=== PATIENT | female | born 1930 | race Caucasian/White ===

== ENCOUNTER 2017-01-10 14:56 | Inpatient (IN) | payer OTHER ==
[2017-01-10 15:16] VITALS: BMI 31.6
[2017-01-10 17:00] LABS: BASOPHIL 0.3 % (0-2.0); EOSINOPHIL 0.9 % (0-4.5); MCH 31.8 pg (25.7-33.7); MCHC 32.7 g/dl (32.0-36.0); MEAN CELL VOLUME 97.2 fl (80-96); MEAN PLT VOLUME 7.6 fl (7.5-11.1); PLATELET COUNT 283 K/MM3 (134-434); RDW 14.8 % (11.6-15.6); WHITE BLOOD COUNT 6.4 K/mm3 (4.0-10.0)
[2017-01-10 17:04] LABS: ALBUMIN 3.2 g/dl (3.4-5.0); CALCIUM 8.9 mg/dL (8.5-10.1); COCKROFT - GAULT 59.908; CREATININE 0.9 mg/dL (0.55-1.02)
--- NOTE | 2017-01-10 17:06 | PDOC ---
History of Present Illness - General Chief Complaint: Weakness Stated Complaint: PCP SENT/EVALUATION Time Seen by Provider: 01/10/17 16:06 History Source: Patient - History of Present Illness Timing/Duration: other Associated Symptoms: reports: shortness of breath, weakness. denies: chest pain , nausea/vomiting, syncope Past History - Past Medical History Allergies/Adverse Reactions: Allergies Allergy/AdvReac Type Severity Reaction Status Date / Time cefuroxime axetil Allergy Unknown Verified 12/06/12 13:50 [From Ceftin] codeine [Codeine] Allergy Unknown Verified 12/06/12 13:50 epinephrine Allergy Unknown Verified 12/06/12 13:50 Sulfa (Sulfonamide Allergy Unknown Verified 12/06/12 13:50 Antibiotics) [Sulfa(Sulfonamide Antibiotics)] ADHESIVE TAPE Allergy Unknown Uncoded 10/07/12 16:11 BANDAIDS Allergy Unknown Uncoded 10/07/12 16:11 Red/yellow/green peppers Allergy Uncoded 10/09/12 10:34 Home Medications: Ambulatory Orders Acetaminophen [Tylenol -] 500 mg PO BID 01/10/17 Acidoph/L.bulg/Bif.b/S.thermop [Layla-Bid Caplet] 1 each PO TID 01/10/17 Ammonium Lactate Lotion [Lac-Hydrin 12% Lotion -] 1 applic TP ASDIR 01/10/17 Apixaban [Eliquis] 5 mg PO BID 01/10/17 Cholecalciferol (Vitamin D3) [D3-50] 50,000 unit PO MONTHLY 01/10/17 Cranberry Fruit [Cranberry] 405 mg PO DAILY 01/10/17 Cyclosporine [Restasis] 1 each OP BID 01/10/17 Dronedarone HCl [Multaq] 400 mg PO BID 01/10/17 Fluticasone Propionate [Flovent Diskus] 220 mcg IH BID 01/10/17 Furosemide [Lasix] 40 mg PO DAILY 01/10/17 Gabapentin [Neurontin -] 100 mg PO HS 01/10/17 Hydralazine HCl [Apresoline -] 50 mg PO TID 01/10/17 Inhaler, Assist Devices [Optichamber Melyssa] 1 each MC BID 01/10/17 Lactase 3,000 unit PO BID 01/10/17 Levothyroxine [Synthroid -] 75 mcg PO DAILY 01/10/17 Loratadine [Allergy] 10 mg PO DAILY 01/10/17 Losartan Potassium [Cozaar] 100 mg PO DAILY 01/10/17 Montelukast Na [Singulair -] 10 mg PO HS 01/10/17 Nebivolol HCl [Bystolic] 20 mg PO HS 01/10/17 Potassium Chloride [K-Dur -] 10 meq PO BID 01/10/17 Ranitidine [Zantac -] 300 mg PO BID 01/10/17 Asthma: Yes Cardiac Disorders: (cad) COPD: Yes GI Disorders: Yes (GERD) HTN: Yes Thyroid Disease: Yes - Surgical History Cardiac Surgery: Yes (PPM) - Psycho/Social/Smoking Cessation Hx Anxiety: No Suicidal Ideation: No Smoking Status: No Smoking History: Never smoked Have you smoked in the past 12 months: No Number of Cigarettes Smoked Daily: 0 Information on smoking cessation initiated: No Hx Alcohol Use: No Drug/Substance Use Hx: No Substance Use Type: None Hx Substance Use Treatment: No Review of Systems - Review of Systems Respiratory: Yes: Shortness of Breath. No: Cough Cardiac (ROS): No: Chest Pain, Lightheadedness, Palpitations, Syncope *Physical Exam - Vital Signs Last Vital Signs Temp Pulse Resp BP Pulse Ox 97.9 F 70 18 136/95 98 01/10/17 15:12 01/10/17 15:12 01/10/17 15:12 01/10/17 15:12 01/10/17 16:45 - Physical Exam General Appearance: Yes: Appropriately Dressed. No: Apparent Distress HEENT: positive: Normal Voice Neck: positive: Supple Respiratory/Chest: positive: Lungs Clear, Normal Breath Sounds. negative: Respiratory Distress Cardiovascular: positive: Regular Rate, S1, S2 Gastrointestinal/Abdominal: positive: Soft. 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 Pt c/o profound weakness w/ sob x several days. No CP, diaphoresis, n/v, palpitations or leg pain/swelling See exam Parosxysmal afib, sent in for cardioversion by cards C/o weakness/sob, no CP Stable w/ unremarkable exam in ED -ekg/cxr/labs -d/w cards -admit 01/10/17 17:08 01/10/17 17:10 01/10/17 18:[address] Bernard, Dr Hinds contacted him to say that he saw pt in office several days ago for weakness and pt was found to be back in afib so needs admission for cardioversion. Pt stable in ED w/ paced rhythm on ekg. Dr Mir currently at bedside. Will contact PMD and admit 01/10/17 18:13 01/10/17 18:23 01/10/17 18:41 Case d/w Dr Rivera and pt admitted 01/10/17 18:42 *DC/Admit/Observation/Transfer Diagnosis at time of Disposition: Weakness - Discharge Dispostion Condition at time of disposition: Fair Admit: Yes - Referrals Referrals: Charisma Espinal MD [Primary Care Provider] -
[2017-01-10 17:08] LABS: BILIRUBIN,TOTAL 0.6 mg/dL (0.2-1.0); TROPONIN I 0.03 ng/ml (0.00-0.05)
[2017-01-10] MEDS ORDERED: SODIUM CHLORIDE 500 ML IV STA (17:11)
--- NOTE | 2017-01-10 17:46 | CON.CARD ---
Consult Consult Specialty:: Cardiology Referred by:: Alton Espinal MD. Coral Osman MD Reason for Consultation:: Afib - History of Present Illness Chief Complaint: Dyspnea, fatigue History of Present Illness: 86 yo WM h/o 1 vessel CAD, diastolic dysfunction with h/o failure, persistent afib compliant on Eliquis [id number], sick sinus syndrome post PPM with atrial lead revision for lead migration and malfunction (Vadim Sci), mild aortic valve stenosis MG 17 mmHg, HTN/HCVD, hyperlipidmeia, chronic interstitial lung disease, carotid atherosclerosis, hypothyroidism, referred for progressive dyspnea with minimal activity, fatigue, lower extremity edema without chest pain , palpitations, near or true syncope, orthopnea, paroxysmal nocturnal dyspnea, reports medication and diet compliance. - History Source History Provided By: Patient Limitations to Obtaining History: No Limitations - Past Medical History Cardio/Vascular: Yes: AFIB, Aortic Stenosis, CAD, CHF, HTN, Mitral Insufficiency Pulmonary: Yes: Other (Interstitial lung disease) - Past Surgical History Past Surgical History: Yes: Permanent Pacemaker - Alcohol/Substance Use Hx Alcohol Use: No - Smoking History Smoking history: Never smoked Have you smoked in the past 12 months: No Aproximately how many cigarettes per day: 0 Home Medications - Allergies Allergies/Adverse Reactions: Allergies Allergy/AdvReac Type Severity Reaction Status Date / Time cefuroxime axetil Allergy Unknown Verified 12/06/12 13:50 [From Ceftin] codeine [Codeine] Allergy Unknown Verified 12/06/12 13:50 epinephrine Allergy Unknown Verified 12/06/12 13:50 Sulfa (Sulfonamide Allergy Unknown Verified 12/06/12 13:50 Antibiotics) [Sulfa(Sulfonamide Antibiotics)] ADHESIVE TAPE Allergy Unknown Uncoded 10/07/12 16:11 BANDAIDS Allergy Unknown Uncoded 10/07/12 16:11 Red/yellow/green peppers Allergy Uncoded 10/09/12 10:34 - Home Medications Home Medications: Ambulatory Orders Acetaminophen [Tylenol -] 500 mg PO BID 01/10/17 Acidoph/L.bulg/Bif.b/S.thermop [Layla-Bid Caplet] 1 each PO TID 01/10/17 Ammonium Lactate Lotion [Lac-Hydrin 12% Lotion -] 1 applic TP ASDIR 01/10/17 Apixaban [Eliquis] 5 mg PO BID 01/10/17 Cholecalciferol (Vitamin D3) [D3-50] 50,000 unit PO MONTHLY 01/10/17 Cranberry Fruit [Cranberry] 405 mg PO DAILY 01/10/17 Cyclosporine [Restasis] 1 each OP BID 01/10/17 Dronedarone HCl [Multaq] 400 mg PO BID 01/10/17 Fluticasone Propionate [Flovent Diskus] 220 mcg IH BID 01/10/17 Furosemide [Lasix] 40 mg PO DAILY 01/10/17 Gabapentin [Neurontin -] 100 mg PO HS 01/10/17 Hydralazine HCl [Apresoline -] 50 mg PO TID 01/10/17 Inhaler, Assist Devices [Optichamber Melyssa] 1 each MC BID 01/10/17 Lactase 3,000 unit PO BID 01/10/17 Levothyroxine [Synthroid -] 75 mcg PO DAILY 01/10/17 Loratadine [Allergy] 10 mg PO DAILY 01/10/17 Losartan Potassium [Cozaar] 100 mg PO DAILY 01/10/17 Montelukast Na [Singulair -] 10 mg PO HS 01/10/17 Nebivolol HCl [Bystolic] 20 mg PO HS 01/10/17 Potassium Chloride [K-Dur -] 10 meq PO BID 01/10/17 Ranitidine [Zantac -] 300 mg PO BID 01/10/17 Review of Systems - Review of Systems Constitutional: reports: Other (Fatigue) Cardiovascular: reports: Edema, Shortness of Breath - Risk Factors Known Risk Factors: Yes: Age, Hypertension Vital Signs: Vital Signs Temperature 97.9 F 01/10/17 15:12 Pulse Rate 70 01/10/17 15:12 Respiratory Rate 18 01/10/17 15:12 Blood Pressure 136/95 01/10/17 15:12 O2 Sat by Pulse Oximetry (%) 98 01/10/17 16:45 Constitutional: Yes: No Distress, Calm Neck: Yes: Supple Respiratory: Yes: Regular, Diminished, On Nasal O2 Gastrointestinal: Yes: Normal Bowel Sounds, Soft, Abdomen, Obese Cardiovascular: Yes: Pulse Irregular JVD: No Carotid Bruit: No Heart Sounds: Yes: S1, S2 Murmur: Yes: Systolic Murmur, Grade 1 Edema: Yes Edema: LLE: 1+, RLE: 1+ - Other Data Labs, Other Data: CBC, BMP 01/10/17 16:13 01/10/17 16:13 Troponin, BNP 01/10/17 01/10/17 16:13 16:31 Troponin I 0.03 B-Natriuretic Peptide 2636.70 H 2635.16 H Troponin, BNP 01/10/17 01/10/17 16:13 16:31 Troponin I 0.03 B-Natriuretic Peptide 2636.70 H 2635.16 H Underlying afib v-paced at 70 similar to previous Imaging - Results Chest X-ray: Report Reviewed (NAD) Problem List - Problems (1) Acute on chronic diastolic CHF (congestive heart failure), NYHA class 3 Code(s): I50.33 - ACUTE ON CHRONIC DIASTOLIC (CONGESTIVE) HEART FAILURE (2) Hypertensive cardiomyopathy Code(s): I11.9 - HYPERTENSIVE HEART DISEASE WITHOUT HEART FAILURE I42.9 - CARDIOMYOPATHY, UNSPECIFIED Qualifiers: Heart failure presence: with heart failure Qualified Code(s): I11.0 - Hypertensive heart disease with heart failure (3) Coronary artery disease Code(s): I25.10 - ATHSCL HEART DISEASE OF [place] CORONARY ARTERY W/O ANG PCTRS Qualifiers: Coronary Disease-Associated Artery/Lesion type: [place] artery [place] vs. transplanted heart: [place] heart Associated angina: without angina Qualified Code(s): I25.10 - Atherosclerotic heart disease of [place] coronary artery without angina pectoris (4) Hyperlipidemia Code(s): E78.5 - HYPERLIPIDEMIA, UNSPECIFIED Qualifiers: Hyperlipidemia type: pure hypercholesterolemia Qualified Code(s): E78.00 - Pure hypercholesterolemia, unspecified; E78.0 - Pure hypercholesterolemia (5) Persistent atrial fibrillation Code(s): I48.1 - PERSISTENT ATRIAL FIBRILLATION (6) SSS (sick sinus syndrome) Code(s): I49.5 - SICK SINUS SYNDROME (7) History of pacemaker Code(s): Z95.0 - PRESENCE OF CARDIAC PACEMAKER (8) Hypothyroidism Code(s): E03.9 - HYPOTHYROIDISM, UNSPECIFIED Qualifiers: Hypothyroidism type: unspecified Qualified Code(s): E03.9 - Hypothyroidism, unspecified (9) Anticoagulant long-term use Code(s): Z79.01 - ALF (CURRENT) USE OF ANTICOAGULANTS (10) Hyponatremia Code(s): E87.1 - HYPO-OSMOLALITY AND HYPONATREMIA Assessment/Plan 10/10/2015 Echocardiogram: Low normal LV fxn, cLVH, dense MAC, mild , mild LAE 4.1 cm, mild MR, TR 11/01/2014 Mild inferior ischemia, apical thinning LVEF 73% 1. Acute on chronic diastolic failure 2. Persistent afib on Eliquis [id number] 3. Sick sinus syndrome post PPM (Vadim Sci) with h/o atrial lead revision for migration/malfunction 4. 1 vessel CAD 5. HVCD with labile HTN 6. Hyperlipidemia 7. Hypothyroidism 8. Mild aortic stenosis 9. Carotid atherosclerosis 10. Hyponatremia referable to #1 P:1. IV diuresis with monitor diuretic response, renal function and electrolytes 2. Change Multaq to sotalol 80 bid with monitor QTc x 2 days 3. Since patient has been compliant with Eliquis for last month, will plan for DCCV in AM, SERGIO-guidance not necessary 4. Echocardiogram to assess ventricular and valve fxn 5. Continue losartan 100 qd, hydralazine 50 tid, zocor 20 qd, Eliquis 5 bid, zantac 150 bid 6. Thank you for consultative opportunity
[2017-01-10 17:50] LABS: INR 2.04 (0.82-1.09); PROTHROMBIN TIME (PATIENT) 22.8 SEC (9.98-11.88)
--- NOTE | 2017-01-10 18:40 | PDOC ---
*Physical Exam - Vital Signs Last Vital Signs Temp Pulse Resp BP Pulse Ox 97.9 F 70 18 136/95 98 01/10/17 15:12 01/10/17 15:12 01/10/17 15:12 01/10/17 15:12 01/10/17 16:45 ED Treatment Course - LABORATORY CBC & Chemistry Diagram: 01/10/17 16:13 01/10/17 16:13 - ADDITIONAL ORDERS Additional order review: Laboratory Results 01/10/17 01/10/17 01/10/17 16:31 16:13 16:13 INR 2.04 H D Sodium 132 L Potassium 4.1 Chloride 94 L Carbon Dioxide 25 Anion Gap 13 BUN 16 Creatinine 0.9 Creat Clearance w eGFR 59.23 Random Glucose 102 D Calcium 8.9 Total Bilirubin 0.6 AST 22 ALT 22 Alkaline Phosphatase 89 Creatine Kinase 84 Troponin I 0.03 B-Natriuretic Peptide 2635.16 H 2636.70 H Total Protein 7.0 Albumin 3.2 L 01/10/17 16:13 RBC 4.14 MCV 97.2 H MCHC 32.7 RDW 14.8 D MPV 7.6 Neutrophils % 80.0 Lymphocytes % 6.7 L D Monocytes % 12.1 H D Eosinophils % 0.9 Basophils % 0.3 D - Medications Given in the ED: ED Medications Discontinued Medications Generic Name Dose Route Start Last Admin Trade Name Freq PRN Reason Stop Dose Admin Sodium Chloride 500 mls @ 1,000 mls/hr 01/10/17 17:11 01/10/17 17:25 Normal Saline - IV 01/10/17 17:40 1,000 mls/hr ASDIR STA Administration *DC/Admit/Observation/Transfer Diagnosis at time of Disposition: Weakness - Discharge Dispostion Condition at time of disposition: Fair Admit: Yes - Referrals Referrals: Charisma Espinal MD [Primary Care Provider] - - Patient Instructions - Post Discharge Activity
[2017-01-10] MEDS ORDERED: LEVOTHYROXINE NA 75 MCG TABLET (FP) PO ONE (18:44)
[2017-01-10] MEDS ORDERED: LEVOTHYROXINE NA 25 MCG TABLET (FP) ONE (20:10)
[2017-01-10] MEDS: hydrALAZINE HCL 50 MG TABLET (FP) PO SCH (21:28)
[2017-01-10] MEDS: FUROSEMIDE 40 MG/4 ML INJECTABLE VIAL IVPB SCH (21:28)
[2017-01-10] MEDS: SOTALOL HCL 80 MG TABLET (FP) PO SCH (21:28)
[2017-01-10] MEDS: MONTELUKAST NA 10 MG TABLET PO SCH (21:28)
[2017-01-10] MEDS: ATORVASTATIN CA 20 MG TABLET (FP) PO SCH (21:28)
[2017-01-10] MEDS: APIXABAN 5 MG TABLET PO SCH (21:28)
[2017-01-10] MEDS: RANITIDINE HCL 150 MG TABLET (FP) PO SCH (21:28)
[2017-01-10 22:14] LABS: URINE APPEARANCE CLEAR; URINE BILIRUBIN NEGATIVE (NEGATIVE); URINE BLOOD NEGATIVE (NEGATIVE); URINE COLOR STRAW; URINE GLUCOSE (UA) NEGATIVE (NEGATIVE); URINE KETONE NEGATIVE (NEGATIVE); URINE LEUK ESTERASE NEGATIVE (NEGATIVE); URINE NITRITE NEGATIVE (NEGATIVE); URINE PROTEIN NEGATIVE (NEGATIVE); URINE UROBILINOGEN NEGATIVE E.U./dl (0.2-1.0)
[2017-01-11] MEDS: hydrALAZINE HCL 50 MG TABLET (FP) PO SCH ×3 (05:34→22:53)
[2017-01-11] MEDS: LEVOTHYROXINE NA 75 MCG TABLET (FP) PO SCH (06:43)
[2017-01-11] MEDS: FUROSEMIDE 40 MG/4 ML INJECTABLE VIAL IVPB SCH ×2 (06:58→14:41)
[2017-01-11] MEDS: APIXABAN 5 MG TABLET PO SCH ×2 (09:44→22:53)
[2017-01-11] MEDS: RANITIDINE HCL 150 MG TABLET (FP) PO SCH ×2 (09:44→22:53)
[2017-01-11] MEDS: SOTALOL HCL 80 MG TABLET (FP) PO SCH ×2 (09:44→22:53)
[2017-01-11] MEDS: LOSARTAN POTASSIUM 50 MG TABLET (FP) PO SCH (09:44)
--- NOTE | 2017-01-11 09:58 | HP ---
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 Pt c/o profound weakness w/ sob x several days. No CP, diaphoresis, n/v, palpitations or leg pain/swelling Parosxysmal afib, sent in for cardioversion by cards C/o weakness/sob, no CP Stable w/ unremarkable exam in ED -ekg/cxr/labs -d/w cards -admit As per Dr Bernard, Dr Hinds contacted him to say that he saw pt in office several days ago for weakness and pt was found to be back in afib so needs admission for cardioversion. Pt stable in ED w/ paced rhythm on ekg. Pt examined by me in Telemetry Her guardian is with her today. Pt is AAOx3- ambulates with a walker. Has been feeling more tired and weak . Denies any chest pain , SOB , palpitations and dizziness. She had seen DR Rogers a week ago and was told ot go to the ER at that time as she was in Afib - but pt did not want to go and was sent back to [place] on Amiodarone. She had followed up yesterday with no improvement in symptoms and was still found to be in persistent in Afib , she was symptomatic too- Decision made to admit pt and pt to undergo cardioversion. Has PPM placed in 2012- for Afib , she is on Eliquis . Also noted to have increased leg swelling per guardian- today it is much better as she received Lasix yesterday History Source: Patient, Friend Limitations to Obtaining History: No Limitations - Past Medical History Cardiovascular: Yes: AFIB, Aortic Stenosis, CAD, CHF, HTN, Mitral Insufficiency Pulmonary: Yes: Other (Interstitial lung disease) - Past Surgical History Past Surgical History: Yes: Permanent Pacemaker - Smoking History Smoking history: Never smoked Have you smoked in the past 12 months: No Aproximately how many cigarettes per day: 0 - Alcohol/Substance Use Hx Alcohol Use: No Home Medications - Allergies Allergies/Adverse Reactions: Allergies Allergy/AdvReac Type Severity Reaction Status Date / Time cefuroxime axetil Allergy Unknown Verified 12/06/12 13:50 [From Ceftin] codeine [Codeine] Allergy Unknown Verified 12/06/12 13:50 epinephrine Allergy Unknown Verified 12/06/12 13:50 Sulfa (Sulfonamide Allergy Unknown Verified 12/06/12 13:50 Antibiotics) [Sulfa(Sulfonamide Antibiotics)] ADHESIVE TAPE Allergy Unknown Uncoded 10/07/12 16:11 BANDAIDS Allergy Unknown Uncoded 10/07/12 16:11 Red/yellow/green peppers Allergy Uncoded 10/09/12 10:34 - Home Medications Home Medications: Ambulatory Orders Acetaminophen [Tylenol -] 500 mg PO BID 01/10/17 Acidoph/L.bulg/Bif.b/S.thermop [Layla-Bid Caplet] 1 each PO TID 01/10/17 Ammonium Lactate Lotion [Lac-Hydrin 12% Lotion -] 1 applic TP ASDIR 01/10/17 Apixaban [Eliquis] 5 mg PO BID 01/10/17 Cholecalciferol (Vitamin D3) [D3-50] 50,000 unit PO MONTHLY 01/10/17 Cranberry Fruit [Cranberry] 405 mg PO DAILY 01/10/17 Cyclosporine [Restasis] 1 each OP BID 01/10/17 Dronedarone HCl [Multaq] 400 mg PO BID 01/10/17 Fluticasone Propionate [Flovent Diskus] 220 mcg IH BID 01/10/17 Furosemide [Lasix] 40 mg PO DAILY 01/10/17 Gabapentin [Neurontin -] 100 mg PO HS 01/10/17 Hydralazine HCl [Apresoline -] 50 mg PO TID 01/10/17 Inhaler, Assist Devices [Optichamber Melyssa] 1 each MC BID 01/10/17 Lactase 3,000 unit PO BID 01/10/17 Levothyroxine [Synthroid -] 75 mcg PO DAILY 01/10/17 Loratadine [Allergy] 10 mg PO DAILY 01/10/17 Losartan Potassium [Cozaar] 100 mg PO DAILY 01/10/17 Montelukast Na [Singulair -] 10 mg PO HS 01/10/17 Nebivolol HCl [Bystolic] 20 mg PO HS 01/10/17 Potassium Chloride [K-Dur -] 10 meq PO BID 01/10/17 Ranitidine [Zantac -] 300 mg PO BID 01/10/17 Review of Systems - Review of Systems Constitutional: reports: Weakness. denies: Chills, Fever, Loss of Appetite Cardiovascular: denies: Chest Pain, Palpitations, Shortness of Breath Respiratory: denies: Cough, SOB Physical Examination Vital Signs: Vital Signs Temperature 98.1 F 01/11/17 05:31 Pulse Rate 82 01/11/17 05:31 Respiratory Rate 20 01/11/17 05:31 Blood Pressure 120/72 01/11/17 05:31 O2 Sat by Pulse Oximetry (%) 99 01/10/17 21:00 Constitutional: Yes: Well Nourished, No Distress Cardiovascular: Yes: Pulse Irregular, Murmur, Other (PPM) Respiratory: Yes: Diminished Gastrointestinal: Yes: Normal Bowel Sounds, Soft, Abdomen, Obese. No: Distention, Tenderness Edema: Yes Edema: LLE: 1+, RLE: 1+ Psychiatric: Yes: Alert, Oriented Labs: Laboratory Last Values WBC 6.4 K/mm3 (4.0-10.0) 01/10/17 16:13 RBC 4.14 M/mm3 (3.60-5.2) 01/10/17 16:13 Hgb 13.2 GM/dL (10.7-15.3) 01/10/17 16:13 Hct 40.3 % (32.4-45.2) 01/10/17 16:13 MCV 97.2 fl (80-96) H 01/10/17 16:13 MCHC 32.7 g/dl (32.0-36.0) 01/10/17 16:13 RDW 14.8 % (11.6-15.6) D 01/10/17 16:13 Plt Count 283 K/MM3 (134-434) 01/10/17 16:13 MPV 7.6 fl (7.5-11.1) 01/10/17 16:13 Neutrophils % 80.0 % (42.8-82.8) 01/10/17 16:13 Lymphocytes % 6.7 % (8-40) L D 01/10/17 16:13 Monocytes % 12.1 % (3.8-10.2) H D 01/10/17 16:13 Eosinophils % 0.9 % (0-4.5) 01/10/17 16:13 Basophils % 0.3 % (0-2.0) D 01/10/17 16:13 INR 2.04 (0.82-1.09) H D 01/10/17 16:13 Sodium 132 mmol/L (136-145) L 01/10/17 16:13 Potassium 4.1 mmol/L (3.5-5.1) 01/10/17 16:13 Chloride 94 mmol/L (98-107) L 01/10/17 16:13 Carbon Dioxide 25 mmol/L (21-32) 01/10/17 16:13 Anion Gap 13 (8-16) 01/10/17 16:13 BUN 16 mg/dL (7-18) 01/10/17 16:13 Creatinine 0.9 mg/dL (0.55-1.02) 01/10/17 16:13 Creat Clearance w eGFR 59.23 (>60) 01/10/17 16:13 Random Glucose 102 mg/dL (74-106) D 01/10/17 16:13 Calcium 8.9 mg/dL (8.5-10.1) 01/10/17 16:13 Total Bilirubin 0.6 mg/dL (0.2-1.0) 01/10/17 16:13 AST 22 U/L (15-37) 01/10/17 16:13 ALT 22 U/L (12-78) 01/10/17 16:13 Alkaline Phosphatase 89 U/L (45-117) 01/10/17 16:13 Creatine Kinase 84 IU/L (26-192) 01/10/17 16:13 Troponin I 0.03 ng/ml (0.00-0.05) 01/10/17 16:13 B-Natriuretic Peptide 2635.16 pg/ml (5-450) H 01/10/17 16:31 Total Protein 7.0 g/dl (6.4-8.2) 01/10/17 16:13 Albumin 3.2 g/dl (3.4-5.0) L 01/10/17 16:13 Urine Color Straw 01/10/17 22:00 Urine Appearance Clear 01/10/17 22:00 Urine pH 7.0 (5.0-8.0) 01/10/17 22:00 Ur Specific [place] 1.008 (1.001-1.035) 01/10/17 22:00 Urine Protein Negative (NEGATIVE) 01/10/17 22:00 Urine Glucose (UA) Negative (NEGATIVE) 01/10/17 22:00 Urine Ketones Negative (NEGATIVE) 01/10/17 22:00 Urine Blood Negative (NEGATIVE) 01/10/17 22:00 Urine Nitrite Negative (NEGATIVE) 01/10/17 22:00 Urine Bilirubin Negative (NEGATIVE) 01/10/17 22:00 Urine Urobilinogen Negative E.U./dl (0.2-1.0) 01/10/17 22:00 Ur Leukocyte Esterase Negative (NEGATIVE) 01/10/17 22:00 Imaging - Results Chest X-ray: Image Reviewed (mid congestion) EKG: Image Reviewed (Afib) Problem List - Problems (1) Acute on chronic diastolic CHF (congestive heart failure), NYHA class 3 Code(s): I50.33 - ACUTE ON CHRONIC DIASTOLIC (CONGESTIVE) HEART FAILURE (2) Anticoagulant long-term use Code(s): Z79.01 - LONGTERM (CURRENT) USE OF ANTICOAGULANTS (3) Coronary artery disease Code(s): I25.10 - ATHSCL HEART DISEASE OF [place] CORONARY ARTERY W/O ANG PCTRS Qualifiers: Coronary Disease-Associated Artery/Lesion type: [place] artery [place] vs. transplanted heart: [place] heart Associated angina: without angina Qualified Code(s): I25.10 - Atherosclerotic heart disease of [place] coronary artery without angina pectoris (4) History of pacemaker Code(s): Z95.0 - PRESENCE OF CARDIAC PACEMAKER (5) Hyperlipidemia Code(s): E78.5 - HYPERLIPIDEMIA, UNSPECIFIED Qualifiers: Hyperlipidemia type: pure hypercholesterolemia Qualified Code(s): E78.00 - Pure hypercholesterolemia, unspecified; E78.0 - Pure hypercholesterolemia (6) Hypertensive cardiomyopathy Code(s): I11.9 - HYPERTENSIVE HEART DISEASE WITHOUT HEART FAILURE I42.9 - CARDIOMYOPATHY, UNSPECIFIED Qualifiers: Heart failure presence: with heart failure Qualified Code(s): I11.0 - Hypertensive heart disease with heart failure (7) Persistent atrial fibrillation Code(s): I48.1 - PERSISTENT ATRIAL FIBRILLATION (8) Weakness Code(s): R53.1 - WEAKNESS Assessment/Plan PLAN Weakness and CHF decompensation due to persistent Afib To be cardioverted today Keep NPO Cardiology eval noted On Eliquis Continue Lasix BID Monitor renal function meds noted Amiodarone discontinued Rate control with Sotalol DVT prophylaxis-- Eliquis Time spent with pt and guardian, explaining findings and plan, documentation and speaking to staff-- 35 min
[2017-01-11] MEDS ORDERED: SENNOSIDES 8.6MG TABLET (FP) PO PRN (10:22)
--- NOTE | 2017-01-11 10:56 | PN ---
Progress Note, Physician History of Present Illness: Patient's dyspnea and lower extremity edema has improved with diuresis. - Current Medication List Current Medications: Active Medications Apixaban (Eliquis -) 5 mg PO BID [facility] Last Admin: 01/11/17 09:44 Dose: 5 mg Atorvastatin Calcium (Lipitor -) 20 mg PO HS [facility] Last Admin: 01/10/17 21:28 Dose: 20 mg Furosemide (Lasix Injection -) 40 mg IVPB BIDLASIX [facility] Last Admin: 01/11/17 06:58 Dose: 40 mg Hydralazine HCl (Apresoline -) 50 mg PO TID [facility] Last Admin: 01/11/17 05:34 Dose: Not Given Levothyroxine Sodium (Synthroid -) 75 mcg PO DAILY@0700 [facility] Last Admin: 01/11/17 06:43 Dose: Not Given Losartan Potassium (Cozaar -) 100 mg PO DAILY [facility] Last Admin: 01/11/17 09:44 Dose: 100 mg Montelukast Sodium (Singulair -) 10 mg PO HS [facility] Last Admin: 01/10/17 21:28 Dose: 10 mg Ranitidine HCl (Zantac -) 150 mg PO BID [facility] Last Admin: 01/11/17 09:44 Dose: 150 mg Senna (Senna -) 2 tab PO HS PRN PRN Reason: CONSTIPATION Sotalol HCl (Betapace -) 80 mg PO BID [facility] Last Admin: 01/11/17 09:44 Dose: 80 mg - Objective Vital Signs: Vital Signs Temperature 98.1 F 01/11/17 05:31 Pulse Rate 82 01/11/17 05:31 Respiratory Rate 20 01/11/17 05:31 Blood Pressure 120/72 01/11/17 05:31 O2 Sat by Pulse Oximetry (%) 99 01/10/17 21:00 Constitutional: Yes: No Distress, Calm Neck: Yes: Supple Cardiovascular: Yes: Regular Rate and Rhythm, Murmur (2/6 SM) Respiratory: Yes: Regular, Diminished Gastrointestinal: Yes: Normal Bowel Sounds, Soft Edema: Yes Edema: LLE: 1+, RLE: 1+ Labs: INR, PTT INR 2.04 (0.82-1.09) H D 01/10/17 16:13 - ....Imaging EKG: Report Reviewed (Afib occ v-paced @ 79) Problem List - Problems (1) Acute on chronic diastolic CHF (congestive heart failure), NYHA class 3 Code(s): I50.33 - ACUTE ON CHRONIC DIASTOLIC (CONGESTIVE) HEART FAILURE (2) Hypertensive cardiomyopathy Code(s): I11.9 - HYPERTENSIVE HEART DISEASE WITHOUT HEART FAILURE I42.9 - CARDIOMYOPATHY, UNSPECIFIED Qualifiers: Heart failure presence: with heart failure Qualified Code(s): I11.0 - Hypertensive heart disease with heart failure (3) Coronary artery disease Code(s): I25.10 - ATHSCL HEART DISEASE OF [place] CORONARY ARTERY W/O ANG PCTRS Qualifiers: Coronary Disease-Associated Artery/Lesion type: [place] artery [place] vs. transplanted heart: [place] heart Associated angina: without angina Qualified Code(s): I25.10 - Atherosclerotic heart disease of [place] coronary artery without angina pectoris (4) Hyperlipidemia Code(s): E78.5 - HYPERLIPIDEMIA, UNSPECIFIED Qualifiers: Hyperlipidemia type: pure hypercholesterolemia Qualified Code(s): E78.00 - Pure hypercholesterolemia, unspecified; E78.0 - Pure hypercholesterolemia (5) Persistent atrial fibrillation Code(s): I48.1 - PERSISTENT ATRIAL FIBRILLATION (6) SSS (sick sinus syndrome) Code(s): I49.5 - SICK SINUS SYNDROME (7) History of pacemaker Code(s): Z95.0 - PRESENCE OF CARDIAC PACEMAKER (8) Hypothyroidism Code(s): E03.9 - HYPOTHYROIDISM, UNSPECIFIED Qualifiers: Hypothyroidism type: unspecified Qualified Code(s): E03.9 - Hypothyroidism, unspecified (9) Anticoagulant long-term use Code(s): Z79.01 - FDC (CURRENT) USE OF ANTICOAGULANTS (10) Hyponatremia Code(s): E87.1 - HYPO-OSMOLALITY AND HYPONATREMIA Assessment/Plan 10/10/2015 Echocardiogram: Low normal LV fxn, cLVH, dense MAC, mild , mild LAE 4.1 cm, mild MR, TR 11/01/2014 Mild inferior ischemia, apical thinning LVEF 73% 1. Acute on chronic diastolic failure improving 2. Persistent afib on Eliquis [id number] 3. Sick sinus syndrome post PPM (Vadim Sci) with h/o atrial lead revision for migration/malfunction 4. 1 vessel CAD 5. HVCD with labile HTN 6. Hyperlipidemia 7. Hypothyroidism 8. Mild aortic stenosis 9. Carotid atherosclerosis 10. Hyponatremia referable to #1 P:1. Lasix 40 IV bid with monitor diuretic response, renal function and electrolytes 2. Continue sotalol 80 bid 3. Since patient has been compliant with Eliquis for last month, plan for DCCV in AM, SERGIO-guidance not necessary 4. Echocardiogram to assess ventricular and valve fxn 5. Continue losartan 100 qd, hydralazine 50 tid, Lipitor 20 qd, Eliquis 5 bid, zantac 150 bid
[2017-01-11] MEDS ORDERED: PROPOFOL 20 ML ONE ×3 (12:52)
--- NOTE | 2017-01-11 13:06 | PN ---
Progress Note (short form) - Note Progress Note: Procedure Note: Procedure: Direct Current Cardioversion Pre-procedure diagnosis: Diastolic failure, persistent atrial fibrillation, sick sinus syndrome, s/p PPM Post-procedure diagnosis: Paroxysmal atrial fibrillation post DCCV Procedure: After informed consent obtained, patient received propofol by anesthesia, underwent successful direct current cardioversion with synchronized 120J discharge Post-cardioversion EKG obtained demonstrating Atrial pacing @ 60, RBBB, LAFB, maintain sotalol antiarrhythmic with monitor QTc Complications: None Problem List - Problems (1) Acute on chronic diastolic CHF (congestive heart failure), NYHA class 3 Code(s): I50.33 - ACUTE ON CHRONIC DIASTOLIC (CONGESTIVE) HEART FAILURE (2) Hypertensive cardiomyopathy Code(s): I11.9 - HYPERTENSIVE HEART DISEASE WITHOUT HEART FAILURE I42.9 - CARDIOMYOPATHY, UNSPECIFIED Qualifiers: Heart failure presence: with heart failure Qualified Code(s): I11.0 - Hypertensive heart disease with heart failure (3) Coronary artery disease Code(s): I25.10 - ATHSCL HEART DISEASE OF [place] CORONARY ARTERY W/O ANG PCTRS Qualifiers: Coronary Disease-Associated Artery/Lesion type: [place] artery [place] vs. transplanted heart: [place] heart Associated angina: without angina Qualified Code(s): I25.10 - Atherosclerotic heart disease of [place] coronary artery without angina pectoris (4) Hyperlipidemia Code(s): E78.5 - HYPERLIPIDEMIA, UNSPECIFIED Qualifiers: Hyperlipidemia type: pure hypercholesterolemia Qualified Code(s): E78.00 - Pure hypercholesterolemia, unspecified; E78.0 - Pure hypercholesterolemia (5) Persistent atrial fibrillation Code(s): I48.1 - PERSISTENT ATRIAL FIBRILLATION (6) SSS (sick sinus syndrome) Code(s): I49.5 - SICK SINUS SYNDROME (7) History of pacemaker Code(s): Z95.0 - PRESENCE OF CARDIAC PACEMAKER (8) Hypothyroidism Code(s): E03.9 - HYPOTHYROIDISM, UNSPECIFIED Qualifiers: Hypothyroidism type: unspecified Qualified Code(s): E03.9 - Hypothyroidism, unspecified (9) Anticoagulant long-term use Code(s): Z79.01 - RESIDENTIAL (CURRENT) USE OF ANTICOAGULANTS (10) Hyponatremia Code(s): E87.1 - HYPO-OSMOLALITY AND HYPONATREMIA
--- NOTE | 2017-01-11 13:25 | EKG ---
Test Reason : Blood Pressure : / mmHG Vent. 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 RATE HAS INCREASED BY 16 BPM Confirmed by ANJANA TAI MD ([id number]) on 01/11/2017 1:24:46 PM Referred By: Iliana BLACK Confirmed By:ANJANA TAI MD
--- NOTE | 2017-01-11 16:08 | EKG ---
Test Reason : Blood Pressure : / mmHG Vent. Rate : 060 BPM Atrial Rate : 060 BPM P-R Int : 252 ms QRS Dur : 146 ms QT Int : 518 ms P-R-T Axes : 081 -75 -28 degrees QTc Int : 518 ms Atrial-paced rhythm with prolonged AV conduction RIGHT BUNDLE BRANCH BLOCK LEFT ANTERIOR FASCICULAR BLOCK BIFASCICULAR BLOCK MINIMAL VOLTAGE CRITERIA FOR LVH, MAY BE NORMAL VARIANT ABNORMAL ECG WHEN COMPARED WITH ECG OF 11-JAN-2017 08:54, ELECTRONIC ATRIAL PACEMAKER HAS REPLACED ELECTRONIC VENTRICULAR PACEMAKER Confirmed by ANJANA TAI MD ([id number]) on 01/11/2017 4:07:44 PM Referred By: Sumi BAUMANN Confirmed By:ANJANA TAI MD
[2017-01-11] MEDS: MONTELUKAST NA 10 MG TABLET PO SCH (22:53)
[2017-01-11] MEDS: ATORVASTATIN CA 20 MG TABLET (FP) PO SCH (22:53)
[2017-01-12] MEDS: FUROSEMIDE 40 MG/4 ML INJECTABLE VIAL IVPB SCH (06:56)
[2017-01-12] MEDS: LEVOTHYROXINE NA 75 MCG TABLET (FP) PO SCH (06:56)
[2017-01-12] MEDS: hydrALAZINE HCL 50 MG TABLET (FP) PO SCH (06:56)
[2017-01-12 08:11] LABS: BASOPHIL 0.5 % (0-2.0); EOSINOPHIL 2.3 % (0-4.5); MCH 32.5 pg (25.7-33.7); MCHC 33.6 g/dl (32.0-36.0); MEAN CELL VOLUME 96.8 fl (80-96); MEAN PLT VOLUME 8.5 fl (7.5-11.1); NEUTROPHILS 70.5 % (42.8-82.8); PLATELET COUNT 252 K/MM3 (134-434); RDW 14.5 % (11.6-15.6); WHITE BLOOD COUNT 6.6 K/mm3 (4.0-10.0)
[2017-01-12 08:23] LABS: ALBUMIN 2.9 g/dl (3.4-5.0); CALCIUM 8.6 mg/dL (8.5-10.1); COCKROFT - GAULT 57.1965; CREATININE 0.9 mg/dL (0.55-1.02); MAGNESIUM 1.8 mg/dL (1.8-2.4); TOT PROT 6.2 g/dl (6.4-8.2)
[2017-01-12] MEDS ORDERED: ACETAMINOPHEN 325 MG TABLET (FP) ONE (09:38)
[2017-01-12] MEDS: APIXABAN 5 MG TABLET PO SCH (09:40)
[2017-01-12] MEDS: SOTALOL HCL 80 MG TABLET (FP) PO SCH (09:40)
[2017-01-12] MEDS: RANITIDINE HCL 150 MG TABLET (FP) PO SCH (09:40)
[2017-01-12] MEDS: LOSARTAN POTASSIUM 50 MG TABLET (FP) PO SCH (09:40)
--- NOTE | 2017-01-12 09:54 | PN ---
Progress Note, Physician History of Present Illness: Patient's dyspnea and lower extremity edema has improved with diuresis. - Current Medication List Current Medications: Active Medications Apixaban (Eliquis -) 5 mg PO BID [facility] Last Admin: 01/12/17 09:40 Dose: 5 mg Atorvastatin Calcium (Lipitor -) 20 mg PO HS [facility] Last Admin: 01/11/17 22:53 Dose: 20 mg Furosemide (Lasix Injection -) 40 mg IVPB BIDLASIX [facility] Last Admin: 01/12/17 06:56 Dose: 40 mg Hydralazine HCl (Apresoline -) 50 mg PO TID [facility] Last Admin: 01/12/17 06:56 Dose: 50 mg Levothyroxine Sodium (Synthroid -) 75 mcg PO DAILY@0700 [facility] Last Admin: 01/12/17 06:56 Dose: 75 mcg Losartan Potassium (Cozaar -) 100 mg PO DAILY [facility] Last Admin: 01/12/17 09:40 Dose: 100 mg Montelukast Sodium (Singulair -) 10 mg PO HS [facility] Last Admin: 01/11/17 22:53 Dose: 10 mg Ranitidine HCl (Zantac -) 150 mg PO BID [facility] Last Admin: 01/12/17 09:40 Dose: 150 mg Senna (Senna -) 2 tab PO HS PRN PRN Reason: CONSTIPATION Sotalol HCl (Betapace -) 80 mg PO BID [facility] Last Admin: 01/12/17 09:40 Dose: 80 mg - Objective Vital Signs: Vital Signs Temperature 98.7 F 01/12/17 01:54 Pulse Rate 63 01/12/17 06:00 Respiratory Rate 20 01/12/17 06:00 Blood Pressure 132/52 01/12/17 06:00 O2 Sat by Pulse Oximetry (%) 96 01/11/17 21:00 Constitutional: Yes: No Distress, Calm Neck: Yes: Supple Cardiovascular: Yes: Regular Rate and Rhythm, Murmur (2/6) Respiratory: Yes: Regular, Diminished Gastrointestinal: Yes: Normal Bowel Sounds, Soft, Abdomen, Obese Edema: No Labs: CBC, BMP 01/12/17 05:38 01/12/17 05:38 INR, PTT INR 2.04 (0.82-1.09) H D 01/10/17 16:13 - ....Imaging EKG: Report Reviewed (Tele: PAF->SR EKG: NSR @ 62, LAD, LVH, QTc 485 msec) Problem List - Problems (1) Acute on chronic diastolic CHF (congestive heart failure), NYHA class 3 Code(s): I50.33 - ACUTE ON CHRONIC DIASTOLIC (CONGESTIVE) HEART FAILURE (2) Hypertensive cardiomyopathy Code(s): I11.9 - HYPERTENSIVE HEART DISEASE WITHOUT HEART FAILURE I42.9 - CARDIOMYOPATHY, UNSPECIFIED Qualifiers: Heart failure presence: with heart failure Qualified Code(s): I11.0 - Hypertensive heart disease with heart failure (3) Coronary artery disease Code(s): I25.10 - ATHSCL HEART DISEASE OF [place] CORONARY ARTERY W/O ANG PCTRS Qualifiers: Coronary Disease-Associated Artery/Lesion type: [place] artery [place] vs. transplanted heart: [place] heart Associated angina: without angina Qualified Code(s): I25.10 - Atherosclerotic heart disease of [place] coronary artery without angina pectoris (4) Hyperlipidemia Code(s): E78.5 - HYPERLIPIDEMIA, UNSPECIFIED Qualifiers: Hyperlipidemia type: pure hypercholesterolemia Qualified Code(s): E78.00 - Pure hypercholesterolemia, unspecified; E78.0 - Pure hypercholesterolemia (5) Persistent atrial fibrillation Code(s): I48.1 - PERSISTENT ATRIAL FIBRILLATION (6) SSS (sick sinus syndrome) Code(s): I49.5 - SICK SINUS SYNDROME (7) History of pacemaker Code(s): Z95.0 - PRESENCE OF CARDIAC PACEMAKER (8) Hypothyroidism Code(s): E03.9 - HYPOTHYROIDISM, UNSPECIFIED Qualifiers: Hypothyroidism type: unspecified Qualified Code(s): E03.9 - Hypothyroidism, unspecified (9) Anticoagulant long-term use Code(s): Z79.01 - CARE HOME (CURRENT) USE OF ANTICOAGULANTS (10) Hyponatremia Code(s): E87.1 - HYPO-OSMOLALITY AND HYPONATREMIA Assessment/Plan 10/10/2015 Echocardiogram: Low normal LV fxn, cLVH, dense MAC, mild , mild LAE 4.1 cm, mild MR, TR 11/01/2014 Mild inferior ischemia, apical thinning LVEF 73% 01/10/2017 Echo: Mod decreased LV fxn, mod LAE, mod , pacer 1. Acute on chronic diastolic/systolic failure improving post Multaq 2. Paroxysmal afib on Eliquis [id number] post DCCV 3. Sick sinus syndrome post PPM (Vadim Sci) with h/o atrial lead revision for migration/malfunction 4. 1 vessel CAD 5. HVCD with labile HTN 6. Hyperlipidemia 7. Hypothyroidism 8. Moderate aortic stenosis 9. Carotid atherosclerosis 10. Hyponatremia referable to #1 improving 11. Interstitial lung disease precluding long-term amiodarone use P:1. Change Lasix 40 po qd, add Aldactone 25 qd with monitor diuretic response, renal function and electrolytes, replete K and Mg 2. Continue sotalol 80 bid 3. Continue Eliquis 5 bid 4. Continue losartan 100 qd, hydralazine 50 tid, Lipitor 20 qd, zantac 150 bid 5. PT, d/c planning
[2017-01-12] MEDS ORDERED: ACETAMINOPHEN 325 MG TABLET (FP) PO PRN (10:04)
--- NOTE | 2017-01-12 10:12 | DS ---
Physical Examination Vital Signs: Vital Signs Temperature 98.7 F 01/12/17 01:54 Pulse Rate 63 01/12/17 06:00 Respiratory Rate 20 01/12/17 06:00 Blood Pressure 132/52 01/12/17 06:00 O2 Sat by Pulse Oximetry (%) 96 01/11/17 21:00 Labs: CBC, BMP 01/12/17 05:38 01/12/17 05:38 <Mara Osman - Last Filed: 01/12/17 10:12> Vital Signs: Vital Signs Temperature 98.7 F 01/12/17 01:54 Pulse Rate 63 01/12/17 06:00 Respiratory Rate 20 01/12/17 06:00 Blood Pressure 132/52 01/12/17 06:00 O2 Sat by Pulse Oximetry (%) 96 01/11/17 21:00 Findings/Remarks: Patient seen and examined. Chart reviewed. Comfortable. Chief complaint: Pain in the neck-- chronic. Denies chest pain or shortness of breath. Constitutional: Yes: No Distress, Calm Eyes: Yes: Conjunctiva Clear Neck: Yes: Supple Cardiovascular: Yes: Regular Rate and Rhythm, Murmur Respiratory: Yes: CTA Bilaterally Gastrointestinal: Yes: Soft Edema: Yes (Trace) Neurological: Yes: Alert Labs: CBC, BMP 01/12/17 05:38 01/12/17 05:38 <Waleska Myles - Last Filed: 01/12/17 10:18> Discharge Summary Reason For Visit: WEAKNESS Current Active Problems Acute on chronic diastolic CHF (congestive heart failure), NYHA class 3 (Acute) Anticoagulant long-term use (Acute) Coronary artery disease (Acute) History of pacemaker (Acute) Hyperlipidemia (Acute) Hypertensive cardiomyopathy (Acute) Hyponatremia (Acute) Hypothyroidism (Acute) Persistent atrial fibrillation (Acute) SSS (sick sinus syndrome) (Acute) Weakness (Acute) - Home Medications Comprehensive Discharge Medication List: Ambulatory Orders Acetaminophen [Tylenol .Extra-Strength -] 500 mg PO BID 01/10/17 Acidoph/L.bulg/Bif.b/S.thermop [Layla-Bid Caplet] 1 each PO TID 01/10/17 Ammonium Lactate Lotion [Lac-Hydrin 12] 1 applic TP ASDIR 01/10/17 Apixaban [Eliquis] 5 mg PO BID 01/10/17 Cholecalciferol (Vitamin D3) [D3-50] 50,000 unit PO MONTHLY 01/10/17 Cranberry Fruit [Cranberry] 405 mg PO DAILY 01/10/17 Cyclosporine [Restasis] 1 each OP BID 01/10/17 Fluticasone Propionate [Flovent Diskus] 220 mcg IH BID 01/10/17 Furosemide [Lasix] 40 mg PO DAILY 01/10/17 Gabapentin [Neurontin -] 100 mg PO HS 01/10/17 Hydralazine HCl [Apresoline -] 50 mg PO TID 01/10/17 Inhaler, Assist Devices [Optichamber Melyssa] 1 each MC BID 01/10/17 Lactase 3,000 unit PO BID 01/10/17 Levothyroxine [Synthroid -] 75 mcg PO DAILY 01/10/17 Loratadine [Allergy] 10 mg PO DAILY 01/10/17 Losartan Potassium [Cozaar] 100 mg PO DAILY 01/10/17 Montelukast Na [Singulair -] 10 mg PO HS 01/10/17 Nebivolol HCl [Bystolic] 20 mg PO HS 01/10/17 Ranitidine [Zantac -] 300 mg PO BID 01/10/17 Atorvastatin Ca [Lipitor] 20 mg PO HS tablet 01/12/17 Sotalol HCl [Betapace -] 80 mg PO BID tablet 01/12/17 Spironolactone [Aldactone -] 25 mg PO DAILY #30 tablet 01/12/17 <Mara Osman - Last Filed: 01/12/17 10:12> Current Active Problems Acute on chronic diastolic CHF (congestive heart failure), NYHA class 3 (Acute) Anticoagulant long-term use (Acute) Coronary artery disease (Acute) History of pacemaker (Acute) Hyperlipidemia (Acute) Hypertensive cardiomyopathy (Acute) Hyponatremia (Acute) Hypothyroidism (Acute) Persistent atrial fibrillation (Acute) SSS (sick sinus syndrome) (Acute) Weakness (Acute) Hospital Course: The patient is an 86-year-old woman with a significant past medical history of hypertension, hypercholesterolemia, atrial fibrillation on Eliquis, s/p pacemaker for SSS, , sent to ED by her rails developer, Dr Hinds to be admitted for cardioversion for her atrial fibrillation. Patient underwent DC Cardioversion. Patient is now stable back to Retirement. Remains in sinus rhythm. Case discusses with Computer Science Instructor, Dr. Matheus Mir today. Medications reviewed. Patient is on beta pace. Will discharge back to shelter today. Will do EKG before transfer. Medications reconciled. Will discuss with shelter physician as well. Times spent discharge planning/ examining/documenting/ as well as coordinating care; 35 minutes. Documentation prepared by Waleska Myles, acting as a medical billing manager to Mara Osman MD. - Home Medications Comprehensive Discharge Medication List: Ambulatory Orders Acetaminophen [Tylenol .Extra-Strength -] 500 mg PO BID 01/10/17 Acidoph/L.bulg/Bif.b/S.thermop [Layla-Bid Caplet] 1 each PO TID 01/10/17 Ammonium Lactate Lotion [Lac-Hydrin 12] 1 applic TP ASDIR 01/10/17 Apixaban [Eliquis] 5 mg PO BID 01/10/17 Cholecalciferol (Vitamin D3) [D3-50] 50,000 unit PO MONTHLY 01/10/17 Cranberry Fruit [Cranberry] 405 mg PO DAILY 01/10/17 Cyclosporine [Restasis] 1 each OP BID 01/10/17 Fluticasone Propionate [Flovent Diskus] 220 mcg IH BID 01/10/17 Furosemide [Lasix] 40 mg PO DAILY 01/10/17 Gabapentin [Neurontin -] 100 mg PO HS 01/10/17 Hydralazine HCl [Apresoline -] 50 mg PO TID 01/10/17 Inhaler, Assist Devices [Optichamber Melyssa] 1 each MC BID 01/10/17 Lactase 3,000 unit PO BID 01/10/17 Levothyroxine [Synthroid -] 75 mcg PO DAILY 01/10/17 Loratadine [Allergy] 10 mg PO DAILY 01/10/17 Losartan Potassium [Cozaar] 100 mg PO DAILY 01/10/17 Montelukast Na [Singulair -] 10 mg PO HS 01/10/17 Nebivolol HCl [Bystolic] 20 mg PO HS 01/10/17 Ranitidine [Zantac -] 300 mg PO BID 01/10/17 Atorvastatin Ca [Lipitor] 20 mg PO HS tablet 01/12/17 Sotalol HCl [Betapace -] 80 mg PO BID tablet 01/12/17 Spironolactone [Aldactone -] 25 mg PO DAILY #30 tablet 01/12/17 <Waleska Myles - Last Filed: 01/12/17 10:18> Condition: Fair - Instructions Referrals: Charisma Espinal MD [Primary Care Provider] -
[2017-01-12] MEDS ORDERED: SPIRONOLACTONE 25 MG TABLET (FP) PO SCH (10:15)
[2017-01-12] MEDS ORDERED: MAGNESIUM OXIDE 400 MG TABLET (FP) PO ONE (10:30)
[2017-01-12] MEDS ORDERED: POTASSIUM CHLORIDE TABS 20 MEQ TABLET.ER (FP) PO ONE (10:30)
[2017-01-12 12:12] VITALS: BP 122/80; PULSE 72; TEMP 98
[2017-01-13] MEDS ORDERED: FUROSEMIDE 40 MG TABLET (FP) PO SCH (10:00)
--- NOTE | 2017-01-13 11:21 | EKG ---
Test Reason : Blood Pressure : / mmHG Vent. Rate : 065 BPM Atrial Rate : 065 BPM P-R Int : 254 ms QRS Dur : 148 ms QT Int : 530 ms P-R-T Axes : 075 -75 -34 degrees QTc Int : 551 ms Atrial-paced rhythm with prolonged AV conduction RIGHT BUNDLE BRANCH BLOCK LEFT ANTERIOR FASCICULAR BLOCK BIFASCICULAR BLOCK MINIMAL VOLTAGE CRITERIA FOR LVH, MAY BE NORMAL VARIANT ABNORMAL ECG WHEN COMPARED WITH ECG OF 11-JAN-2017 13:34, NONSPECIFIC T WAVE ABNORMALITY NOW EVIDENT IN LATERAL LEADS Confirmed by ANJANA TAI MD ([id number]) on 01/13/2017 11:21:18 AM Referred By: GEOVANY COLIN Confirmed By:ANJANA TAI MD
== END 2017-01-12 13:22 | DRG 308 ==
LOC: JER 14:56 → JERBED 18:40 → J4W 20:48
PROVIDERS: ADMIT Internal Medicine; ATTEND Internal Medicine
PROC: 5A2204Z Restoration of Cardiac Rhythm, Single (ICD-10-PCS; principal; 2017-01-11 12:30)
DX: I48.1 Persistent atrial fibrillation (principal); I50.33 Acute on chronic diastolic (congestive) heart failure; J84.9 Interstitial pulmonary disease, unspecified; E87.1 Hypo-osmolality and hyponatremia; I11.0 Hypertensive heart disease with heart failure; J45.909 Unspecified asthma, uncomplicated; I25.10 Atherosclerotic heart disease of native coronary artery without angina pectoris; J44.9 Chronic obstructive pulmonary disease, unspecified; I34.0 Nonrheumatic mitral (valve) insufficiency; K21.9 Gastro-esophageal reflux disease without esophagitis; I10 Essential (primary) hypertension; E78.5 Hyperlipidemia, unspecified; E03.9 Hypothyroidism, unspecified; I35.0 Nonrheumatic aortic (valve) stenosis; Z95.0 Presence of cardiac pacemaker
CPT/HCPCS: 36415; 71010-TC; 80053; 81003; 82550; 83735; 83880; 84443; 84484; 85025; 85610; 93005; 93010; 93306-TC; 99284-25

== ENCOUNTER 2017-12-07 11:00 | Observation (INO) | payer OTHER ==
--- NOTE | 2017-12-07 11:28 | PDOC ---
History of Present Illness - General Stated Complaint: FALL Time Seen by Provider: 12/07/17 11:05 History Source: Patient Exam Limitations: No Limitations - History of Present Illness Initial Comments: This is an 87 YOF with h/o paroxysmal A-fib (on Eliquis), sick sinus syndrome s/ p pacer placement, CAD, CHF, HTN, HLD, left knee replacement, ambulatory with a walker at her baseline, who presents [facility] s/p GLF at 4 am on Sunday while she was ambulating with her walker in her room at her [facility]. She states that she had no preceding symptoms before the fall, lost her balance using the walker, and fell onto her right hip. She denies having hit her head or lost consciousness, but was unable to pick herself up and was down on the ground for about 4.5 hours before anyone found her. A hip X-ray was initially done which was reportedly negative. However the patient has had continued and even worsening pain all week and had a repeat hip X-ray done in the past day which showed a fracture. The patient denies any chest pain, SOB, leg swelling, QUINTERO, vision changes, or other symptoms. She has been getting Tylenol with the last dose at 0930 today. Past History - Past Medical History Allergies/Adverse Reactions: Allergies Allergy/AdvReac Type Severity Reaction Status Date / Time cefuroxime axetil Allergy Unknown Verified 12/07/17 11:10 [From Ceftin] codeine [Codeine] Allergy Unknown Verified 12/07/17 11:10 epinephrine Allergy Unknown Verified 12/07/17 11:10 Sulfa (Sulfonamide Allergy Unknown Verified 12/07/17 11:10 Antibiotics) [Sulfa(Sulfonamide Antibiotics)] ADHESIVE TAPE Allergy Unknown Uncoded 12/07/17 11:10 BANDAIDS Allergy Unknown Uncoded 12/07/17 11:10 Red/yellow/green peppers Allergy Uncoded 12/07/17 11:10 Home Medications: Ambulatory Orders Acetaminophen [Tylenol .Extra-Strength -] 500 mg PO TID 01/10/17 Acidoph/L.bulg/Bif.b/S.thermop [Layla-Bid Caplet] 1 each PO TID 01/10/17 Ammonium Lactate Lotion [Lac-Hydrin 12] 1 applic TP ASDIR 01/10/17 Apixaban [Eliquis] 5 mg PO BID 01/10/17 Cholecalciferol (Vitamin D3) [D3-50] 50,000 unit PO MONTHLY 01/10/17 Cranberry Fruit [Cranberry] 405 mg PO DAILY 01/10/17 Cyclosporine [Restasis] 1 each OP BID 01/10/17 Fluticasone Propionate [Flovent Diskus] 220 mcg IH BID 01/10/17 Furosemide [Lasix] 20 mg PO DAILY 01/10/17 Gabapentin [Neurontin -] 100 mg PO HS 01/10/17 Lactase 3,000 unit PO BID 01/10/17 Levothyroxine [Synthroid -] 75 mcg PO DAILY 01/10/17 Loratadine [Allergy] 10 mg PO DAILY 01/10/17 Losartan Potassium [Cozaar] 100 mg PO DAILY 01/10/17 Nebivolol HCl [Bystolic] 20 mg PO HS 01/10/17 Ranitidine [Zantac -] 300 mg PO BID 01/10/17 Atorvastatin Ca [Lipitor] 20 mg PO HS tablet 01/12/17 Sotalol HCl [Betapace -] 80 mg PO BID tablet 01/12/17 Spironolactone [Aldactone -] 25 mg PO DAILY #30 tablet 01/12/17 Fluticasone Prop 0.05% Nasal [Flonase -] 1 spray NS BID 12/07/17 Guaifenesin [Robitussin -] 100 mg PO Q4H 12/07/17 Meclizine HCl 12.5 mg PO QID 12/07/17 Simethicone 80 mg PO QID 12/07/17 Asthma: Yes Cardiac Disorders: (cad) COPD: Yes CHF: Yes GI Disorders: Yes (GERD) HTN: Yes Thyroid Disease: Yes - Surgical History Cardiac Surgery: Yes (PPM) - Suicide/Smoking/Psychosocial Hx Smoking Status: No Smoking History: Never smoked Have you smoked in the past 12 months: No Number of Cigarettes Smoked Daily: 0 Information on smoking cessation initiated: No Hx Alcohol Use: No Drug/Substance Use Hx: No Substance Use Type: None Hx Substance Use Treatment: No Review of Systems - Review of Systems Able to Perform ROS?: Yes Constitutional: No: Chills, Fever, Unexplained wgt Loss HEENTM: No: Nose Congestion, Throat Pain Respiratory: No: Cough, Shortness of Breath Cardiac (ROS): No: Chest Pain, Palpitations, Syncope ABD/GI: No: Constipated, Diarrhea, Nausea, Vomiting : No: Burning, Dysuria Musculoskeletal: Yes: Other (right hip pain). No: Back Pain, Neck Pain Integumentary: No: Bruising, Rash Neurological: No: Headache, Numbness, Tingling, Weakness, Dizziness Endocrine: No: Unexplained Weight Gain, Unexplained Weight Loss *Physical Exam - Vital Signs Last Vital Signs Temp Pulse Resp BP Pulse Ox 98.3 F 68 18 153/59 100 12/07/17 11:10 12/07/17 11:10 12/07/17 11:10 12/07/17 11:10 12/07/17 11:10 - Physical Exam General Appearance: Yes: Nourished, Other (very pleasant elderly female in no distress at rest but moderate distress with any repositioning of right hip 2/2 pain, answering questions appropriately). No: Apparent Distress HEENT: positive: EOMI, ANIYA, Normal ENT Inspection, Normal Voice, Hearing Grossly Normal, Other (no cephalohematoma, no scalp contusion or abrasion, no raccoon eyes, no hemotympanum, no wilcox sign, no CSF rhonirrhea or otorrhea). negative: Scleral Icterus (R), Scleral Icterus (L), Nasal Congestion Neck: positive: Trachea midline, Supple. negative: Tender, Rigid, Tender midline Respiratory/Chest: positive: Lungs Clear, Normal Breath Sounds. negative: Respiratory Distress, Crackles, Rhonchi, Stridor, Wheezing Cardiovascular: positive: Regular Rhythm, Regular Rate, S1, S2, Murmur (3/6 systolic ejection murmur), Other (pacer in place right anterior chest wall). negative: Edema, JVD Gastrointestinal/Abdominal: positive: Normal Bowel Sounds, Soft. negative: Tender, Organomegaly, Pulsatile Mass, Guarding Musculoskeletal: positive: Normal Inspection. negative: Decreased Range of Motion, Vertebral Tenderness Extremity: positive: Normal Capillary Refill, Tender (right inguinal tenderness to palpation, no right lateral hip tenderness to palpation), Pelvis Stable, Other (right leg is actually about 2 cm longer than the left leg, no rotation). negative: Cyanosis, Pedal Edema, Swelling, Calf Tenderness Integumentary: positive: Normal Color, Dry, Warm. negative: Erythema, Rash, Bruising Neurologic: positive: web applications programmer II-XII NML intact, Fully Oriented, Alert, Normal Mood/ Affect, Normal Response, Motor Strength 5/5, Finger to Nose (normal), Other ( gait not tested d/t nature of complaint). negative: EOM Palsy, Facial Droop, Numbness, Sensory Deficit, Confused, Disoriented ED Treatment Course - LABORATORY CBC & Chemistry Diagram: 12/07/17 11:50 12/07/17 11:50 Medical Decision Making - Medical Decision Making 87 YOF p/w fall 4 days ago and reported right hip fracture. On exam vitals wnl, mild distress 2/2 pain, right inguinal ttp, right leg 2 cm longer than left, otherwise wnl. Left dorsal hand ecchymosis, LLE shortened by about 3 cm from RLE, DP and PT pulses intact, pelvis stable. Ordered is CT head, CT pelvis/right hip, CBCD CMP Mg Coags T&S UA UCx. Also 2 mg Morphine IV. 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 CXR notable for moderate cardiomegaly, increased interstitial markings, mild vascular congestion. HCT shows likely chronic changes and no acute ICH. Patient additionally has hyponatremia to 129. 12/07/17 15:[address] Taylor. This is unlikely to be a surgical case. Dr. Taylor is in house and will come to see the patient in the ED. Microblog placed to Brad (admitting for Dr. Charisma Espinal). 12/07/17 16:14 Spoke with with Brad (hospitalist team admitting for patient's PCP). Patient will be admitted to Obs Med/Surg to Dr. Sanchez. *DC/Admit/Observation/Transfer Diagnosis at time of Disposition: Hyponatremia, Fall from ground level Fracture of right superior pubic ramus Qualifiers: Encounter type: initial encounter Fracture type: closed Qualified Code(s): S32.511A - Fracture of superior rim of right pubis, initial encounter for closed fracture - Discharge Dispostion Condition at time of disposition: Guarded Admit: Yes - Referrals Referrals: Charisma Espinal MD [Primary Care Provider] - - Patient Instructions - Post Discharge Activity
[2017-12-07 12:05] LABS: BASO % 0.5 % (0-2.0); EOS % 2.5 % (0-4.5); HEMATOCRIT 39.9 % (32.4-45.2); HEMOGLOBIN 13.7 GM/dL (10.7-15.3); LYMPH % 6.7 % (8-40); MCHC 34.4 g/dl (32.0-36.0); MEAN PLT VOLUME 7.6 fl (7.5-11.1); MONO % 13.5 % (3.8-10.2); NEUT % 76.8 % (42.8-82.8); PLATELET COUNT 270 K/MM3 (134-434); RBC 4.03 M/mm3 (3.60-5.2); RDW 13.1 % (11.6-15.6); WHITE BLOOD COUNT 7.7 K/mm3 (4.0-10.0)
[2017-12-07 12:21] LABS: INR 1.37 (0.82-1.09); PROTHROMBIN TIME (PATIENT) 15.5 SEC (9.98-11.88)
[2017-12-07 12:24] LABS: ACTIVATED PTT 31.9 SECONDS (26.9-34.4)
[2017-12-07 12:33] LABS: ALBUMIN 2.8 g/dl (3.4-5.0); ALK PHOS 86 U/L (45-117); ANION GAP 11 (8-16); BILIRUBIN,TOTAL 0.5 mg/dL (0.2-1.0); BLOOD UREA NITROGEN 25 mg/dL (7-18); CALCIUM 8.8 mg/dL (8.5-10.1); CHLORIDE 92 mmol/L (98-107); CO2 26 mmol/L (21-32); CREATININE 0.8 mg/dL (0.55-1.02); GLUCOSE,RANDOM 128 mg/dL (74-106); MAGNESIUM 2.3 mg/dL (1.8-2.4); PHOSPHOROUS 2.6 mg/dL (2.5-4.9); POTASSIUM 4.5 mmol/L (3.5-5.1); SGOT/AST 17 U/L (15-37); SGPT/ALT 20 U/L (12-78); SODIUM 129 mmol/L (136-145); TOT PROT 6.8 g/dl (6.4-8.2)
--- NOTE | 2017-12-07 12:47 | PDOC ---
Attending Attestation - Resident Resident Name: Usha Farley - ED Attending Attestation I have performed the following: I have examined & evaluated the patient, The case was reviewed & discussed with the resident, I agree w/resident's findings & plan, Exceptions are as noted - HPI HPI: 12/07/17 12:45 "The patient is a 87 year old female, with a significant past medical history of paroxysmal atrial fibrillation (on eliquis), sick sinus syndrome s/p pacer placement, coronary artery disease, congestive heart failure, hypertension, hyperlipidemia, who presents to the emergency department via EMS with, right hip pain s/p fall on Sunday. The patient states she was ambulating with her walker when she lost her balance using the walker and fell onto her right side. She denies any head injury or loss of consciousness and states she recalls all events leading up to and after the fall. The patient denies any chest pain, palpitations, shortness of breath, diaphoresis or nausea prior to falling. The patient states an XR was performed at her living facility which was initially negative. However, after having progressively worsening right hip pain throughout the week another XR was performed which confirmed a right hip fracture. That patient reports receiving Tylenol for the pain with minimal relief. She denies neck or back pain. She denies any bowel or bladder incontinence. She denies recent fevers, chills, headache or dizziness. She denies recent nausea, vomit, diarrhea or constipation. She denies recent chest pain or shortness of breath. Allergies: Multiple allergies. See nursing notes. Past surgical history: left knee replacement PCP: Dr Espinal " - Physicial Exam PE: 12/07/17 12:53 "GENERAL: Awake, alert, and fully oriented, in no acute distress HEAD: No signs of trauma EYES: PERRLA, EOMI, sclera anicteric, conjunctiva clear ENT: Auricles normal inspection, hearing grossly normal, nares patent, oropharynx clear without exudates. Moist mucosa NECK: Nontender, no stepoffs, Normal ROM, supple, no lymphadenopathy, JVD, or masses LUNGS: Breath sounds equal, clear to auscultation bilaterally. No wheezes, and no crackles HEART: Regular rate and rhythm, normal S1 and S2, no murmurs, rubs or gallops ABDOMEN: Soft, nontender, normoactive bowel sounds. No guarding, no rebound. No masses EXTREMITIES: +R hip tenderness, distal pulses and sensation intact, ROM limited 2/2 pain NEUROLOGICAL: Cranial nerves II through XII intact. 5/5 strength and sensation in all extremities, Normal speech, normal gait, normal cerebellar function SKIN: Warm, Dry, normal turgor, no rashes or lesions noted. " - Medical Decision Making 12/07/17 12:54 87 F with R hip fx. Exam with R hip tenderness. No other signs of trauma. However, given age and AC, will obtain CT head. - CT head, pelvis - Labs CT pelvis with pubic ramus fx CT head negative Pt admitted to hospitalist. Dr. Taylor following.
--- NOTE | 2017-12-07 15:17 | CONSULT ---
Consult - text type - Consultation Consultation Note: FULL CONSULT DICTATED IMP: RIGHT INF. PUBIC RAMUS FX PLAN: ANALGESICS, PT-WBAT, DC PLANNING. NO SURGICAL INTERVENTION NECESSARY
--- NOTE | 2017-12-07 15:42 | HP ---
CHIEF COMPLAINT: Fall, R hip fx on XR PCP: Charisma Espinal HISTORY OF PRESENT ILLNESS: 87 yo woman w/ pmh of CAD, paroxysmal afib (on eliquis), sick sinus syndrome (s/ p PPM), COPD, Asthma, HLD, Osteoporosis, who presents s/p mechanical fall saturday 12/02, now with persistent R groin pain, found to have R suprapubic ramus fx on imaging at [facility]. At baseline, pt ambulates with walker and lives at [facility]. She states she was walking to the bathroom around 4AM and upon returning, states her walker gave out and she fell on her R side. She denies any lightheadness, dizziness, vision changes, CP, palpitations, cough or leg weakness at the time. Denies headstrike and any other trauma. She denies any gross deformities, numbness or weakness and rates the pain as 8/10. Pt remained on ground for 4 hours until breakfast was delivered. Pt received XR of hip at [facility] , which was initially read as no fx. Pt remained bedbound for majority of week, with minimal resolution in pain with analgesics. Pt received repeat XR of hip yesterday, which was notable for R inferior pubic ramus deformity suspicious for fracture. Pt with no prior hx of fractures, except for clavicle fx at age 11. Has not received DEXA scan. Prior dx of osteoporosis, however unsure of timeline. Pt takes Vitamin D and Calcium supplements, denies estrogen supplements. In addition to pelvic pain, pt endorses productive cough and increased SOB at night, requiring home oxygen, which she normally does not use. Pt denies f/c/n/v /d, CP, dizziness, vision changes, ab pain, back pain, dysuria, peripheral numbness or tingling on exam. She does endorse poor PO intake and hydration. ER course was notable for: (1)Na 129 (2)Pelvic CT with R comminuted pubic symphysis fx (3)CXR with mild congestion Recent Travel: No PAST MEDICAL HISTORY: paroxysmal afib sick sinus syndrome PPM CAD CHF HTN HLD GERD COPD/Asthma Hypothyroidism PAST SURGICAL HISTORY: Left knee replacement Hysterectomy BL mastectomy Tonsillectomy Social History: Lives at assisted living center Smoking: Never Alcohol: No Drugs: No Family History: Mother and father with unspecified cardiac hz, grandparents on both sides with unknown cardiac hx Allergies cefuroxime axetil [From Ceftin] Allergy (Unknown, Verified 12/07/17 11:10) codeine [Codeine] Allergy (Unknown, Verified 12/07/17 11:10) epinephrine Allergy (Unknown, Verified 12/07/17 11:10) Sulfa (Sulfonamide Antibiotics) [Sulfa(Sulfonamide Antibiotics)] Allergy ( Unknown, Verified 12/07/17 11:10) ADHESIVE TAPE Allergy (Unknown, Uncoded 12/07/17 11:10) BANDAIDS Allergy (Unknown, Uncoded 12/07/17 11:10) Red/yellow/green peppers Allergy (Uncoded 12/07/17 11:10) HOME MEDICATIONS: Home Medications Medication Instructions Recorded Acetaminophen [Tylenol 500 mg PO TID 01/10/17 .Extra-Strength -] Acidoph/L.bulg/Bif.b/S.thermop 1 each PO TID 01/10/17 [Layla-Bid Caplet] Ammonium Lactate Lotion 1 applic TP ASDIR 01/10/17 [Lac-Hydrin 12] Apixaban [Eliquis] 5 mg PO BID 01/10/17 Cholecalciferol (Vitamin D3) 50,000 unit PO MONTHLY 01/10/17 [D3-50] Cranberry Fruit [Cranberry] 405 mg PO DAILY 01/10/17 Cyclosporine [Restasis] 1 each OP BID 01/10/17 Fluticasone Propionate [Flovent 220 mcg IH BID 01/10/17 Diskus] Furosemide [Lasix] 20 mg PO DAILY 01/10/17 Gabapentin [Neurontin -] 100 mg PO HS 01/10/17 Lactase 3,000 unit PO BID 01/10/17 Levothyroxine [Synthroid -] 75 mcg PO DAILY 01/10/17 Loratadine [Allergy] 10 mg PO DAILY 01/10/17 Losartan Potassium [Cozaar] 100 mg PO DAILY 01/10/17 Nebivolol HCl [Bystolic] 20 mg PO HS 01/10/17 Ranitidine [Zantac -] 300 mg PO BID 01/10/17 Atorvastatin Ca [Lipitor] 20 mg PO HS tablet 01/12/17 Sotalol HCl [Betapace -] 80 mg PO BID tablet 01/12/17 Spironolactone [Aldactone -] 25 mg PO DAILY #30 tablet 01/12/17 Fluticasone Prop 0.05% Nasal 1 spray NS BID 12/07/17 [Flonase -] Guaifenesin [Robitussin -] 100 mg PO Q4H 12/07/17 Meclizine HCl 12.5 mg PO QID 12/07/17 Simethicone 80 mg PO QID 12/07/17 REVIEW OF SYSTEMS CONSTITUTIONAL: Poor PO intake Absent: fever, chills, diaphoresis, generalized weakness, malaise, loss of appetite, weight change HEENT: Absent: rhinorrhea, nasal congestion, throat pain, throat swelling, difficulty swallowing, mouth swelling, ear pain, eye pain, visual changes CARDIOVASCULAR: Orthopnea Absent: chest pain, syncope, palpitations, irregular heart rate, lightheadedness , peripheral edema RESPIRATORY: cough, shortness of breath, Absent: dyspnea with exertion, orthopnea, wheezing, stridor, hemoptysis GASTROINTESTINAL: Absent: abdominal pain, abdominal distension, nausea, vomiting, diarrhea, constipation, melena, hematochezia GENITOURINARY: pelvic pain Absent: dysuria, frequency, urgency, hesitancy, hematuria, flank pain, genital pain MUSCULOSKELETAL: Absent: myalgia, arthralgia, joint swelling, back pain, neck pain SKIN: Absent: rash, itching, pallor HEMATOLOGIC/IMMUNOLOGIC: Absent: easy bleeding, easy bruising, lymphadenopathy, frequent infections NEUROLOGIC: Absent: headache, focal weakness or paresthesias, dizziness, unsteady gait, seizure, mental status changes, bladder or bowel incontinence PHYSICAL EXAMINATION Vital Signs - 24 hr 12/07/17 12/07/17 11:10 15:08 Temperature 98.3 F 98.2 F Pulse Rate 68 Pulse Rate [ 65 Radial] Respiratory 18 20 Rate Blood Pressure 153/59 Blood Pressure 139/67 [Left Arm] O2 Sat by Pulse 100 98 Oximetry (%) GENERAL: Elderly woman, laying in bed, A&Ox3 HEAD: Normal with no signs of trauma. EYES: Pupils equal, round and reactive to light, extraocular movements intact, sclera anicteric, conjunctiva clear. No lid lag. EARS, NOSE, THROAT: Dry oropharynx. Ears normal, nares patent NECK: Normal range of motion, supple without lymphadenopathy, JVD, or masses. LUNGS: Trace bibasilar crackles, L>R. No wheezing noted. Not using accessory muscles HEART: Regular rate and rhythm, normal S1 and S2 without murmur, rub or gallop. ABDOMEN: Globular. Soft, nontender, normoactive bowel sounds, no guarding, no rebound, no masses. No organomegaly. MUSCULOSKELETAL: Limited motion at R hip joint with flexion/extension, I/E rotation. Normal range of motion at all other joints. No gross deformities noted. Pain on deep palpation of R groin. UPPER EXTREMITIES: 2+ pulses, warm, well-perfused. No cyanosis. No clubbing. No peripheral edema. LOWER EXTREMITIES: 2+ pulses, warm, well-perfused. No calf tenderness. No peripheral edema. 5/5 strength in LUE/RUE/LLE throughout. 4/5 strength on dorsi/ plantarflexion of R foot due to pain, 2/5 flex/extension at R hip limited due to pain. NEUROLOGICAL: Cranial nerves II-XII intact. Normal speech. Gait not observed. PSYCHIATRIC: Cooperative. Good eye contact. Appropriate mood and affect. SKIN: Warm, dry, decreased turgor Laboratory Results - last 24 hr CBC, BMP 12/07/17 11:50 12/07/17 11:50 12/07/17 12/07/17 12/07/17 11:50 11:50 11:50 WBC 7.7 RBC 4.03 Hgb 13.7 Hct 39.9 MCV 99.0 H MCH 34.0 H MCHC 34.4 RDW 13.1 Plt Count 270 MPV 7.6 D Neutrophils % 76.8 Lymphocytes % 6.7 L D Monocytes % 13.5 H Eosinophils % 2.5 Basophils % 0.5 PT with INR 15.50 H INR 1.37 H D PTT (Actin FS) 31.9 D Sodium 129 L Potassium 4.5 Chloride 92 L Carbon Dioxide 26 Anion Gap 11 BUN 25 H Creatinine 0.8 Creat Clearance w eGFR > 60 Random Glucose 128 H Calcium 8.8 Phosphorus 2.6 Magnesium 2.3 Total Bilirubin 0.5 D AST 17 ALT 20 Alkaline Phosphatase 86 Total Protein 6.8 Albumin 2.8 L Blood Type Antibody Screen 12/07/17 11:50 WBC RBC Hgb Hct MCV MCH MCHC RDW Plt Count MPV Neutrophils % Lymphocytes % Monocytes % Eosinophils % Basophils % PT with INR INR PTT (Actin FS) Sodium Potassium Chloride Carbon Dioxide Anion Gap BUN Creatinine Creat Clearance w eGFR Random Glucose Calcium Phosphorus Magnesium Total Bilirubin AST ALT Alkaline Phosphatase Total Protein Albumin Blood Type B POSITIVE Antibody Screen Negative No micro CXR 12/07 - No significant change. Moderate cardiomegaly with increased interstitial lung markings suggestive of mild pulmonary venous congestion. Correlate clinically. CT head 12/07 - No prior is available for comparison Right caudate head lacunar infarct, of indeterminate age, possibly chronic. Correlate clinically to determine further evaluation. Left basal ganglia old lacunar infarct. Otherwise , no gross acute infarct, mass lesion or intracranial hemorrhage are identified. RLE CT/Pelvis CT 12/07 - 1. Minimally displaced, comminuted acute fracture of the right inferior pubic ramus. 2. Subtle asymmetric sclerosis within the right sacral body may be the sequela of recent or prior insufficiency fracture. Please correlate clinically. 3. Please refer to the report above for additional findings. EKG 12/07 - Rate 62, LAD, Qtc 475, A-paced, v-paced, Trifascular block, poor R waves progression ASSESSMENT/PLAN: 87 yo woman w/ pmh of CAD, paroxysmal afib (on eliquis), sick sinus syndrome (s/ p PPM), COPD, Asthma, HLD, Osteoporosis, who presents s/p mechanical fall saturday 12/02, now with persistent R groin pain, now with CT confirmed R inferior pubic ramus comminuted fracture. Orthopedic consulted, recommend non-surgical tx. Labs notable for hyponatremia, likely due to dehydration. #R Pelvic Fracture - Per Claudia, likely no surgical intervation; plan for DC w/ PT - pain control - Ortho consulted - Dr. Taylor - IVFs - PT consult - serial neuro/vascular checks on LEs - WBAT #CHF - CXR with vascular congestion; Does not appear clinically volume overloaded - c/w home meds - betapace, losartan, spironolactone. Hold bystolic for now. Pt last discharged with betapace. Can add later if needed. - hold lasix in setting of hyponatremia - BNP - Strict Is and Os - Daily Wts - Interval cardiac hx if required - Gentle IVFs #Hyponatremia - 129 on BNP; likely hypovolemic; calculated serum osmolarity 267 ; chronic hyponatremia ~132 - Trend - Gentle IVFs with NS - may require salt tabs flatwork feeder #Afib - on eliquis at home - c/w eliquis #HLD -c/w home lipitor #Asthma/COPD - increased SOB this week -c/w home asthma meds - O2 - duonebs q4h prn - Will give one tx now #Seasonal allergies - c/w home meds #Hypothyroidism - c/w home levo #GERD -Zantac PPX Eliquis Zantac FEN IVFs - NS 75cc daily lytes Na controlled diet Dispo - obs m/s Plan discussed with attending, Dr. Daniel Werner, PGY1 Visit type - Emergency Visit Emergency Visit: Yes Care time: The patient presented to the Emergency Department on the above date and was hospitalized for further evaluation of their emergent condition. - New Patient This patient is new to me today: Yes Date on this admission: 12/07/17 - Critical Care Critical Care patient: No Hospitalist Screening - Colonoscopy Questionnaire Colonoscopy Questionnaire: Colonoscopy Questionnaire - Patient: 50 - 75 years old and never had a screening colonoscopy: Unknown History of colon or rectal polyps, or CA: Unknown History of IBD, Crohn's disease or UC: Unknown History of abdominal radiation therapy as a child: Unknown - Relative: 1 with colon or rectal CA, or polyps at age 60 or younger: Unknown Colon or rectal CA diagnosed at age 45 or younger: Unknown Multiple relatives with colon or rectal CA: Unknown - Outcome: Screening Result: Negative Screen
[2017-12-07] MEDS ORDERED: SODIUM CHLORIDE 500 ML IV STA (17:06)
--- NOTE | 2017-12-07 17:10 | CONS ---
DATE OF CONSULTATION: 12/07/2017 ORTHOPEDICS CONSULTATION HISTORY OF PRESENT ILLNESS: Patient is an 87-year-old female status post fall 4 days ago in the assisted. They did x-rays in the facility and found that she had no fracture; however, patient was complaining of persistent pain and inability to ambulate and was re-x-rayed which found the fracture, and then the assisted transferred the patient to the emergency room. Patient is on Eliquis. PHYSICAL EXAMINATION: She has equal limb length, no shortening. She has some pain with range of motion of the right hip, no pain with range of motion of the knee and the ankle rami especially on the right side. Nontender ileum, SI joint and sacrum. CT scan performed in the emergency room was positive for right inferior pubic ramus fracture, questionable insufficiency fracture of the sacrum, but she has no clinical exam fracture. PLAN: Admit for analgesics, physical therapy, weightbearing as tolerated, and then discharge planning. Patient may remain on Eliquis. No operative intervention is required. ALISA YAO M.D. [id number]
[2017-12-07] MEDS ORDERED: ALBUTEROL SO4 2.5/IPRATROPIUM 0.5 INH SOL 3 ML VIAL.NEB. NEB ONE ×2 (17:12→18:29)
[2017-12-07] MEDS ORDERED: GUAIFENESIN 100 MG PO SCH (17:15)
[2017-12-07] MEDS ORDERED: guaiFENesin 200 MG/10 ML 10 ML UNIT-DOSE CUPS PO PRN (17:16)
--- NOTE | 2017-12-07 17:50 | PN ---
Teaching Attending Note Name of Resident: Jerry Werner ATTENDING PHYSICIAN STATEMENT I saw and evaluated the patient. I reviewed the resident's note and discussed the case with the resident. I agree with the resident's findings and plan as documented. SUBJECTIVE:87yo F [facility] CAD, SSS s/p PPM, CHF, afib on eliquis, dyslipidemia presented to the ER after mechanical fall 5 days ago. was ambulating with RW where the walker slipped out and she fell. has been having R hip pain. initial XR was negative but was repeated at [facility] which showed pelvic fracture and sent to the ER. states pain is controlled with tylenol as long as she gets it every 6hours. has been unable to ambulate due to the pain. denies any symptoms prior to or after the fall. admits to feeling very thirsty. no changes to medications. denies CP, SOB< fever, chills, N/V/C/D, dysuria or urinary frequency. OBJECTIVE: Last Vital Signs Temp Pulse Resp BP Pulse Ox 98.2 F 65 20 139/67 98 12/07/17 15:08 12/07/17 15:08 12/07/17 15:08 12/07/17 15:08 12/07/17 15:08 General NAD HEENT dry oral mucosa CV S1 S2 irregular +murmur Lungs CTA anteriorly. diminished at bases Abdomen soft NT/ND Extremities no pedal edema ASSESSMENT AND PLAN: 87yo F [facility] CAD, SSS s/p PPM, CHF, afib on eliquis, dyslipidemia presented to the ER after mechanical fall 5 days ago 1. R inferior pubic ramus fracture- medicine observation. due to mechanical fall. fracture minimally displaced. likely no intervention. orthopedics consulted. pain control. PT assessment. will need RIGOBERTO 2. Hypovolemic hyponatremia- due to diuretic. will give NS 500cc slowly. hold lasix. repeat Na level in the evening. check serum osm, uosm, Joe 3. DVT ppx- eliquis 4. PT assessment. will need RIGOBERTO. can be done at [facility]
[2017-12-07] MEDS ORDERED: MECLIZINE HCL 12.5 MG TABLET ONE (18:29)
[2017-12-07] MEDS ORDERED: ACETAMINOPHEN 325 MG TABLET (FP) ONE (18:29)
[2017-12-07] MEDS: MECLIZINE HCL 12.5 MG TABLET PO SCH ×2 (18:34→22:00)
[2017-12-07] MEDS: ACETAMINOPHEN 325 MG TABLET (FP) PO PRN (18:34)
[2017-12-07] MEDS ORDERED: PT OWN MED DRAWER 7, Y5N ONE (21:36)
[2017-12-07] MEDS: SIMETHICONE 80 MG TAB.CHEW (FP) PO SCH (22:00)
[2017-12-07] MEDS ORDERED: ATORVASTATIN CA 20 MG TABLET (FP) PO SCH (22:00)
[2017-12-07] MEDS ORDERED: PATIENT'S OWN MEDICATION (NON-FORMULARY) (Acidoph/L.Bulg/Bif.B/S.Thermop [Risa-Bid Caplet] PO SCH (22:00)
[2017-12-07] MEDS ORDERED: PATIENT'S OWN MEDICATION (NON-FORMULARY) (Nebivolol Hcl [Bystolic] 20 MG) PO SCH (22:00)
[2017-12-07] MEDS ORDERED: MOMETASONE FUROATE 220 MCG/IH INHALER IH SCH (22:00)
[2017-12-07] MEDS ORDERED: GABAPENTIN 100 MG CAPSULE (FP) PO SCH (22:00)
[2017-12-07] MEDS: RANITIDINE HCL 150 MG TABLET (FP) PO SCH (22:00)
[2017-12-07] MEDS ORDERED: RANITIDINE HCL 150 MG TABLET (FP) PO SCH (22:00)
[2017-12-07] MEDS ORDERED: PATIENT'S OWN MEDICATION (NON-FORMULARY) (Cyclosporine [Restasis] 1 EACH) OP SCH (22:00)
[2017-12-07] MEDS: SOTALOL HCL 80 MG TABLET (FP) PO SCH (22:01)
[2017-12-07] MEDS: APIXABAN 5 MG TABLET PO SCH (22:14)
[2017-12-07] MEDS: FLUTICASONE PROP 0.05% 16 GM NASAL SPRAY NS SCH (22:14)
[2017-12-07 23:53] VITALS: BMI 30.8
[2017-12-08 02:58] LABS: ANION GAP 10 (8-16); BLOOD UREA NITROGEN 26 mg/dL (7-18); CALCIUM 8.7 mg/dL (8.5-10.1); CHLORIDE 95 mmol/L (98-107); CO2 25 mmol/L (21-32); CREATININE 0.8 mg/dL (0.55-1.02); GLUCOSE,RANDOM 99 mg/dL (74-106); POTASSIUM 4.7 mmol/L (3.5-5.1); SODIUM 130 mmol/L (136-145)
[2017-12-08] MEDS: ACETAMINOPHEN 325 MG TABLET (FP) PO PRN (06:22)
[2017-12-08] MEDS ORDERED: LEVOTHYROXINE NA 75 MCG TABLET (FP) PO SCH (07:00)
[2017-12-08 08:00] LABS: HEMATOCRIT 39.1 % (32.4-45.2); HEMOGLOBIN 13.3 GM/dL (10.7-15.3); MCH 33.8 pg (25.7-33.7); MCHC 33.9 g/dl (32.0-36.0); MEAN CELL VOLUME 99.7 fl (80-96); MEAN PLT VOLUME 7.9 fl (7.5-11.1); PLATELET COUNT 246 K/MM3 (134-434); RBC 3.92 M/mm3 (3.60-5.2); RDW 13.1 % (11.6-15.6); WHITE BLOOD COUNT 6.8 K/mm3 (4.0-10.0)
[2017-12-08 08:46] LABS: ANION GAP 10 (8-16); BLOOD UREA NITROGEN 27 mg/dL (7-18); CALCIUM 8.6 mg/dL (8.5-10.1); CHLORIDE 96 mmol/L (98-107); CO2 25 mmol/L (21-32); CREATININE 0.7 mg/dL (0.55-1.02); GLUCOSE,RANDOM 89 mg/dL (74-106); POTASSIUM 4.7 mmol/L (3.5-5.1); SODIUM 131 mmol/L (136-145)
[2017-12-08 09:10] LABS: N-TERMINAL BNP 2048.08 pg/ml (5-450)
[2017-12-08] MEDS ORDERED: LORATADINE 10 MG TABLET PO SCH (10:00)
[2017-12-08] MEDS ORDERED: SPIRONOLACTONE 25 MG TABLET (FP) PO SCH (10:00)
[2017-12-08] MEDS ORDERED: LOSARTAN POTASSIUM 100 MG TABLET PO SCH (10:00)
[2017-12-08] MEDS: RANITIDINE HCL 150 MG TABLET (FP) PO SCH (10:02)
[2017-12-08] MEDS: APIXABAN 5 MG TABLET PO SCH (10:02)
[2017-12-08] MEDS: SOTALOL HCL 80 MG TABLET (FP) PO SCH (10:02)
[2017-12-08] MEDS: SIMETHICONE 80 MG TAB.CHEW (FP) PO SCH ×2 (10:02→14:12)
[2017-12-08] MEDS: MECLIZINE HCL 12.5 MG TABLET PO SCH ×2 (10:02→14:12)
[2017-12-08] MEDS: FLUTICASONE PROP 0.05% 16 GM NASAL SPRAY NS SCH (10:03)
[2017-12-08] MEDS ORDERED: PT OWN MED DRAWER 7, Y5N ONE (10:43)
[2017-12-08 11:06] VITALS: BP 127/65; PULSE 64
--- NOTE | 2017-12-08 12:52 | DS ---
Physical Exam: SUBJECTIVE: Patient seen and examined. pain controlled with tylenol. denies CP, SOB, fever, chills, cough, N/V/C/D OBJECTIVE: Vital Signs Period Temp Pulse Resp BP Sys/Handy Pulse Ox Last 24 Hr 97.0 F-98.9 F 60-70 18-22 111-139/53-73 96-100 PHYSICAL EXAM GENERAL: The patient is awake, alert, and fully oriented, in no acute distress. HEAD: Normal with no signs of trauma. EYES: PERRL, extraocular movements intact, sclera anicteric, conjunctiva clear. ENT: Ears normal, nares patent, oropharynx clear without exudates, moist mucous membranes. NECK: Trachea midline, full range of motion, supple. LUNGS: Breath sounds equal, clear to auscultation bilaterally, no wheezes, no crackles, no accessory muscle use. HEART: Regular rate and rhythm, S1, S2 + murmur no rub or gallop. ABDOMEN: Soft, nontender, nondistended, normoactive bowel sounds, no guarding, no rebound, no hepatosplenomegaly, no masses. obese EXTREMITIES: 2+ pulses, warm, well-perfused, no edema. NEUROLOGICAL: Cranial nerves II through XII grossly intact. Normal speech, gait not observed. PSYCH: Normal mood, normal affect. SKIN: Warm, dry, normal turgor, no rashes or lesions noted. LABS Laboratory Results - last 24 hr 12/07/17 12/08/17 12/08/17 11:50 02:00 07:00 WBC 6.8 RBC 3.92 Hgb 13.3 Hct 39.1 MCV 99.7 H MCH 33.8 H MCHC 33.9 RDW 13.1 Plt Count 246 MPV 7.9 Sodium 130 L Potassium 4.7 Chloride 95 L Carbon Dioxide 25 Anion Gap 10 BUN 26 H Creatinine 0.8 Random Glucose 99 Calcium 8.7 B-Natriuretic Peptide Blood Type B POSITIVE Antibody Screen Negative 12/08/17 12/08/17 07:00 07:00 WBC RBC Hgb Hct MCV MCH MCHC RDW Plt Count MPV Sodium 131 L Potassium 4.7 Chloride 96 L Carbon Dioxide 25 Anion Gap 10 BUN 27 H Creatinine 0.7 Random Glucose 89 Calcium 8.6 B-Natriuretic Peptide 2048.08 H Cancelled Blood Type Antibody Screen HOSPITAL COURSE: Date of Admission:12/07/17 Date of Discharge: 12/08/17 admitting diagnosis Hypovolemic hyponatremia, R inferior pubic ramus fracture, Pre hospital course 87 yo woman w/ pmh of CAD, paroxysmal afib (on eliquis), sick sinus syndrome (s/ p PPM), COPD, Asthma, HLD, Osteoporosis, who presents s/p mechanical fall saturday 12/02, now with persistent R groin pain, found to have R suprapubic ramus fx on imaging at [facility]. At baseline, pt ambulates with walker and lives at [facility]. She states she was walking to the bathroom around 4AM and upon returning, states her walker gave out and she fell on her R side. She denies any lightheadness, dizziness, vision changes, CP, palpitations, cough or leg weakness at the time. Denies headstrike and any other trauma. She denies any gross deformities, numbness or weakness and rates the pain as 8/10. Pt remained on ground for 4 hours until breakfast was delivered. Pt received XR of hip at [facility] , which was initially read as no fx. Pt remained bedbound for majority of week, with minimal resolution in pain with analgesics. Pt received repeat XR of hip yesterday, which was notable for R inferior pubic ramus deformity suspicious for fracture. Pt with no prior hx of fractures, except for clavicle fx at age 11. Has not received DEXA scan. Prior dx of osteoporosis, however unsure of timeline. Pt takes Vitamin D and Calcium supplements, denies estrogen supplements. In addition to pelvic pain, pt endorses productive cough and increased SOB at night, requiring home oxygen, which she normally does not use. Pt denies f/c/n/v /d, CP, dizziness, vision changes, ab pain, back pain, dysuria, peripheral numbness or tingling on exam. She does endorse poor PO intake and hydration. Subsequent hospital course Medicine observation. lasix was held and given NS 500cc. Na level improved. lasix dose should be held and have repeat BMP in 2 days to re-evaluate. if normalized should re-start lasix and consider giving q48H to prevent dehydration. CT scan was done and confirmed R pubic fracutre seen on XR at [facility]. ortho evaluated and no intervention. WBAT. pain control with tylenol. PT assessed and unable to walk due to pain. will need PT therapy. will be able to be done at [facility]. D/c to [facility] for rehab Minutes to complete discharge: 40 Discharge Summary Reason For Visit: FRACTURE OF PUBIC RAMUS Current Active Problems Fall from ground level (Acute) Fracture of right superior pubic ramus (Acute) Hyponatremia (Acute) Hyponatremia (Acute) Condition: Guarded - Instructions Diet, Activity, Other Instructions: You were admitted to the hospital to the hospital because your sodium level is low. This is likely due to your water pill. I would recommend to hold this at this time and have your labs repeated in 2 days. Consider re-starting your water pill once your sodium level normalizes. consider taking a lower dose or alternating days. You were also seen to have a pelvic fracture. There is no surgery necessary at this time. It is recommended to continue pain control with tylenol and physical therapy Continue your other home medications as instructed Follow up with your primary care doctor next week. You should have your chemistries (BMP) on sunday Return to the ER for confusion or fever (temp >101) Referrals: Charisma Espinal MD [Primary Care Provider] - Disposition: HOME - Home Medications Comprehensive Discharge Medication List: Ambulatory Orders Acetaminophen [Tylenol .Extra-Strength -] 500 mg PO TID 01/10/17 Acidoph/L.bulg/Bif.b/S.thermop [Layla-Bid Caplet] 1 each PO TID 01/10/17 Ammonium Lactate Lotion [Lac-Hydrin 12] 1 applic TP ASDIR 01/10/17 Apixaban [Eliquis] 5 mg PO BID 01/10/17 Cholecalciferol (Vitamin D3) [D3-50] 50,000 unit PO MONTHLY 01/10/17 Cranberry Fruit [Cranberry] 405 mg PO DAILY 01/10/17 Cyclosporine [Restasis] 1 each OP BID 01/10/17 Fluticasone Propionate [Flovent Diskus] 220 mcg IH BID 01/10/17 Gabapentin [Neurontin -] 100 mg PO HS 01/10/17 Lactase 3,000 unit PO BID 01/10/17 Levothyroxine [Synthroid -] 75 mcg PO DAILY 01/10/17 Loratadine [Allergy] 10 mg PO DAILY 01/10/17 Losartan Potassium [Cozaar] 100 mg PO DAILY 01/10/17 Nebivolol HCl [Bystolic] 20 mg PO HS 01/10/17 Ranitidine [Zantac -] 300 mg PO BID 01/10/17 Atorvastatin Ca [Lipitor] 20 mg PO HS tablet 01/12/17 Sotalol HCl [Betapace -] 80 mg PO BID tablet 01/12/17 Spironolactone [Aldactone -] 25 mg PO DAILY #30 tablet 01/12/17 Meclizine HCl 12.5 mg PO QID 12/07/17 Simethicone 80 mg PO QID 12/07/17 This patient is new to me today: No Emergency Visit: Yes ED Registration Date: 12/07/17 Care time: The patient presented to the Emergency Department on the above date and was hospitalized for further evaluation of their emergent condition. Critical Care patient: No - Discharge Referral Referred to [facility] No
[2017-12-08 14:06] VITALS: TEMP 98.3
--- NOTE | 2017-12-09 21:53 | EKG ---
Test Reason : Blood Pressure : / mmHG Vent. Rate : 062 BPM Atrial Rate : 062 BPM P-R Int : 298 ms QRS Dur : 150 ms QT Int : 468 ms P-R-T Axes : 068 -67 070 degrees QTc Int : 475 ms Atrial-paced rhythm with prolonged AV conduction RIGHT BUNDLE BRANCH BLOCK LEFT ANTERIOR FASCICULAR BLOCK BIFASCICULAR BLOCK LEFT VENTRICULAR HYPERTROPHY WITH REPOLARIZATION ABNORMALITY CANNOT RULE OUT SEPTAL INFARCT , AGE UNDETERMINED ABNORMAL ECG WHEN COMPARED WITH ECG OF 12-JAN-2017 11:17, COMPARED TO EKG NO SIGNIFICANT CHANGE IS FOUND Confirmed by HILDA COWART MD ([id number]) on 12/09/2017 9:53:46 PM Referred By: Confirmed By:HILDA COWART MD
--- NOTE | 2017-12-10 14:57 | EKG ---
Test Reason : Blood Pressure : / mmHG Vent. Rate : 067 BPM Atrial Rate : 067 BPM P-R Int : 136 ms QRS Dur : 078 ms QT Int : 462 ms P-R-T Axes : 000 -07 158 degrees QTc Int : 488 ms POOR DATA QUALITY, INTERPRETATION MAY BE ADVERSELY AFFECTED NORMAL SINUS RHYTHM LEFT VENTRICULAR HYPERTROPHY WITH REPOLARIZATION ABNORMALITY ABNORMAL ECG WHEN COMPARED WITH ECG OF 07-DEC-2017 11:18, SINUS RHYTHM HAS REPLACED ELECTRONIC ATRIAL PACEMAKER (RBBB AND LEFT ANTERIOR FASCICULAR BLOCK) IS NO LONGER PRESENT Confirmed by ARI JC MD ([id number]) on 12/10/2017 2:56:44 PM Referred By: Confirmed By:ARI JC MD
== END 2017-12-08 16:00 ==
LOC: JER 11:00 → JERBED 16:07 → INTOOBSV 16:07 → UNDOADMOB 16:07 → JERBED 17:05 → J6S 19:10
PROVIDERS: ADMIT Internal Medicine; ATTEND Internal Medicine
PROC: 3E0337Z Introduction of Electrolytic and Water Balance Substance into Peripheral Vein, Percutaneous Approach (ICD-10-PCS; principal; 2017-12-07)
PROC: 3E0F7GC Introduction of Other Therapeutic Substance into Respiratory Tract, Via Natural or Artificial Opening (ICD-10-PCS; 2017-12-07)
DX: S32.511A Fracture of superior rim of right pubis, initial encounter for closed fracture (principal); E87.1 Hypo-osmolality and hyponatremia; I10 Essential (primary) hypertension; I48.0 Paroxysmal atrial fibrillation; I25.10 Atherosclerotic heart disease of native coronary artery without angina pectoris; I50.9 Heart failure, unspecified; I49.5 Sick sinus syndrome; E78.5 Hyperlipidemia, unspecified; E03.9 Hypothyroidism, unspecified; K21.9 Gastro-esophageal reflux disease without esophagitis; J45.909 Unspecified asthma, uncomplicated; J44.9 Chronic obstructive pulmonary disease, unspecified; R26.2 Difficulty in walking, not elsewhere classified; Z99.89 Dependence on other enabling machines and devices; Z79.01 Long term (current) use of anticoagulants; Z95.0 Presence of cardiac pacemaker; Z96.652 Presence of left artificial knee joint; Z88.2 Allergy status to sulfonamides; Z91.018 Allergy to other foods; Z91.048 Other nonmedicinal substance allergy status; W01.0XXA Fall on same level from slipping, tripping and stumbling without subsequent striking against object, initial encounter; Y93.01 Activity, walking, marching and hiking; Y92.122 Bedroom in nursing home as the place of occurrence of the external cause
CPT/HCPCS: 36415; 70450-TC; 71045-TC-FY; 72192-TC; 73700-TC-RT; 80048; 80053; 83735; 83880; 84100; 85025; 85027; 85610; 85730; 86850; 86900; 86901; 93005; 93010; 94640; 96360; 96361; 97162-GP; 99285-25; G0378